=== PATIENT | male | born 1970 | race African-American/Black ===

== ENCOUNTER 2018-06-14 16:25 | Observation (INO) | payer OTHER ==
--- NOTE | 2018-06-14 16:30 | PDOC ---
Rapid Medical Evaluation Medical Evaluation: Allergies Allergy/AdvReac Type Severity Reaction Status Date / Time No Known Allergies Allergy Verified 09/22/12 03:48 06/14/18 16:29 I have performed a brief in-person evaluation of this patient. The patient presents with a chief complaint of:CP x 6 days. ?sob. H/o CAD w/ 1 stent placed last yr, s/p "open heart surgery" for "hole in my heart" per pt Pertinent physical exam findings:well shaun and stable w/ clear chest/lungs I have ordered the following:ekg/cxr/labs The patient will proceed to the ED for further evaluation. Discharge Disposition - Referrals Referrals: Xavi Kumar MD [Primary Care Provider] - - Patient Instructions - Post Discharge Activity
[2018-06-14 16:54] LABS: BASO % 1.1 % (0-2.0); EOS % 6.8 % (0-4.5); HEMATOCRIT 43.7 % (35.4-49); HEMOGLOBIN 15.1 GM/dL (11.7-16.9); LYMPH % 36.2 % (8-40); MCH 29.9 pg (25.7-33.7); MCHC 34.6 g/dl (32.0-35.9); MEAN CELL VOLUME 86.6 fl (80-96); MEAN PLT VOLUME 9.9 fl (7.5-11.1); MONO % 9.5 % (3.8-10.2); NEUT % 46.4 % (42.8-82.8); PLATELET COUNT 209 K/MM3 (134-434); RBC 5.05 M/mm3 (4.00-5.60); RDW 13.7 % (11.9-15.9); WHITE BLOOD COUNT 6.5 K/mm3 (4.0-10.0)
[2018-06-14 17:24] LABS: ALBUMIN 3.8 g/dl (3.4-5.0); ANION GAP 8 MMOL/L (8-16); BILIRUBIN,TOTAL 0.4 mg/dL (0.2-1); BLOOD UREA NITROGEN 17 mg/dL (7-18); CALCIUM 9.3 mg/dL (8.5-10.1); CHLORIDE 109 mmol/L (98-107); CO2 25 mmol/L (21-32); CREATININE 1.2 mg/dL (0.55-1.3); GLUCOSE,RANDOM 118 mg/dL (74-106); POTASSIUM 4.2 mmol/L (3.5-5.1); SGOT/AST 26 U/L (15-37); SGPT/ALT 46 U/L (13-61); SODIUM 142 mmol/L (136-145); TOT PROT 7.1 g/dl (6.4-8.2)
[2018-06-14 17:26] LABS: ALK PHOS 121 U/L (45-117)
--- NOTE | 2018-06-14 17:52 | PDOC ---
History of Present Illness - General History Source: Patient Exam Limitations: No Limitations <Ashwin Pinzon - Last Filed: 06/14/18 18:33> <Lang Gibbs - Last Filed: 06/14/18 21:06> - General Chief Complaint: Chest Pain Stated Complaint: CHEST PAIN Time Seen by Provider: 06/14/18 16:31 - History of Present Illness Initial Comments: 06/14/18 18:33 The patient is a 48 year old male, with a significant past medical history of cardiac stent placement and open heart surgery (as a child), who presents to the ED complaining of chest pain and shortness of breath for the past week. He describes his chest pain as ranging from mild to moderate, sharp and tight in nature. He denies any radiation or modifying factors. He notes that the pain is intermittent and has remained consistent over the past week. He notes that he took Plavix for a year and is currently off Plavix and taking a daily aspirin. He denies exacerbation of his pain or shortness of breath when he exerts himself. The patient denies headache and dizziness. Denies fever, chills, nausea, vomiting, diarrhea or constipation. Allergies: None Past surgical history: Cardiac stent placement, open heart surgery Social History: Cigar (1/2 a day). Alcohol use on the weekends Cardio: Dr. Cole (Ashwin Pinzon) Past History <Ashwin Pinzon - Last Filed: 06/14/18 18:33> - Past Medical History Cardiac Disorders: Yes (STENT, OPEN HEART) COPD: No - Surgical History Cardiac Surgery: Yes (Cardiac Surgery) - Immunization History Immunization Up to Date: No - Suicide/Smoking/Psychosocial Hx Smoking Status: No Smoking History: Never smoked Number of Cigarettes Smoked Daily: 0 <Lang Gibbs - Last Filed: 06/14/18 21:06> - Past Medical History Allergies/Adverse Reactions: Allergies Allergy/AdvReac Type Severity Reaction Status Date / Time No Known Allergies Allergy Verified 06/14/18 16:30 Home Medications: Ambulatory Orders Unobtainable 06/14/18 Review of Systems - Review of Systems Able to Perform ROS?: Yes <Ashwin Pinzon - Last Filed: 06/14/18 18:33> <Lang Gibbs - Last Filed: 06/14/18 21:06> - Review of Systems Comments:: 06/14/18 18:36 CONSTITUTIONAL: No fever, no chills, no fatigue EYES: No visual changes ENT: No ear pain, no sore throat CARDIOVASCULAR: (+) chest pain, no palpitations RESPIRATORY: (+) SOB. No cough. GI: No abdominal pain, no nausea, no vomiting, no constipation, no diarrhea GENITOURINARY: No dysuria, no frequency, no hematuria MUSKULOSKELETAL: No backpain, no joint pain, no myalgias SKIN: No rash NEURO: No headache (Ashwin Pinzon) *Physical Exam <Ashwin Pinzon - Last Filed: 06/14/18 18:33> <Lang Gibbs - Last Filed: 06/14/18 21:06> - Vital Signs Last Vital Signs Temp Pulse Resp BP Pulse Ox 99.2 F 82 18 143/82 97 06/14/18 16:27 06/14/18 16:27 06/14/18 16:27 06/14/18 16:27 06/14/18 16:27 - Physical Exam Comments: 06/14/18 18:37 CONSTITUTIONAL: Well-appearing; well-nourished; in no apparent distress HEAD: Normocephalic; atraumatic EYES: PERRL; EOM intact ENMT: External appears normal; normal oropharynx NECK: Supple; non-tender; no cervical lymphadenopathy CARD: Normal S1, S2; no murmurs, rubs, or gallops RESP: Normal chest excursion with respiration; breath sounds clear and equal bilaterally; no wheezes, rhonchi, or rales ABD: Soft, non-distended; non-tender; no palpable organomegaly, no palpable hernias EXT: Normal ROM in all four extremities; non-tender to palpation; distal pulses intact SKIN: Warm, dry, no rash NEURO: No focal neurological deficiencies. (Ashwin Pinzon) Heart Score/ECG Review - History History: Moderately suspicious - Electrocardiogram EKG: Non specific repolarization disturbance - Age Age: 45-65 - Risk Factors Risk Factors Heart Score: Yes Hx Hypertension, Yes Smoking History Based on the list above the patient has:: 1-2 risk factors - Troponin Troponin: </= normal limit - Score Heart Score - Total: 4 <Lang Gibbs - Last Filed: 06/14/18 21:06> ED Treatment Course - LABORATORY CBC & Chemistry Diagram: 06/14/18 16:42 06/14/18 16:42 <Ashwin Pinzon - Last Filed: 06/14/18 18:33> - LABORATORY CBC & Chemistry Diagram: 06/14/18 16:42 06/14/18 16:42 <Lang Gibbs - Last Filed: 06/14/18 21:06> - ADDITIONAL ORDERS Additional order review: Laboratory Results 06/14/18 16:42 Sodium 142 Potassium 4.2 Chloride 109 H Carbon Dioxide 25 Anion Gap 8 BUN 17 Creatinine 1.2 Creat Clearance w eGFR > 60 Random Glucose 118 H Calcium 9.3 Total Bilirubin 0.4 AST 26 ALT 46 Alkaline Phosphatase 121 H Creatine Kinase 267 Creatine Kinase Index 0.6 CK-MB (CK-2) 1.81 Troponin I < 0.02 Total Protein 7.1 Albumin 3.8 06/14/18 16:42 RBC 5.05 MCV 86.6 MCHC 34.6 RDW 13.7 MPV 9.9 Neutrophils % 46.4 Lymphocytes % 36.2 Monocytes % 9.5 Eosinophils % 6.8 H Basophils % 1.1 - Medications Given in the ED: ED Medications Discontinued Medications Generic Name Dose Route Start Last Admin Trade Name Freq PRN Reason Stop Dose Admin Aspirin 162 mg 06/14/18 18:23 06/14/18 18:48 Asa - PO 06/14/18 18:24 162 mg ONCE ONE Administration Medical Decision Making <Ashwin Pinzon - Last Filed: 06/14/18 18:33> <Lang Gibbs - Last Filed: 06/14/18 21:06> - Medical Decision Making 06/14/18 21:04 Patient is a 48-year-old male with history of CAD on aspirin who presents with intermittent substernal left-sided chest discomfort for the past week. I suspect ACS. EKG reveals nonspecific T-wave abnormalities without a previous EKG available for comparison. Chest x-ray reveals no evidence of cardiomegaly/ infiltrate or effusion. Patient's heart score is noted to be 4. First set of cardiac enzymes within normal limit. We'll administer aspirin. We'll consult cardiology. Will place on telemetry of's for further evaluation and treatment. ( Lang Gibbs) *DC/Admit/Observation/Transfer <Ashwin Pinzon - Last Filed: 06/14/18 18:33> - Discharge Dispostion Decision to Admit order: Yes <Lang Gibbs - Last Filed: 06/14/18 21:06> Diagnosis at time of Disposition: Acute coronary syndrome - Discharge Dispostion Condition at time of disposition: Fair - Referrals Referrals: Xavi Kumar MD [Primary Care Provider] - - Patient Instructions - Post Discharge Activity - Attestations Scribe Attestion: 06/14/18 18:37 Documentation prepared by Ashwin Pinzon, acting as medical billing supervisor for Lang Gibbs MD (Ashwin Pinzon)
[2018-06-14] MEDS ORDERED: ASPIRIN 81 MG CHEWABLE TABLETS PO ONE (18:23)
[2018-06-14] MEDS ORDERED: ASPIRIN 81 MG CHEWABLE TABLETS ONE (18:44)
--- NOTE | 2018-06-15 01:11 | HP ---
CHIEF COMPLAINT: Chest pain PCP: HISTORY OF PRESENT ILLNESS: The patient is a 48 yo m w/ PMH CAD and [place] s/p stenting 1 year ago who comes into the ED c/o a 1 week history of Chest pain. The pain is sharp, located on the left side of his chest just below the pectoral muscle, does not radiate and has no modidifying factors. The patient states that the pain waxes and wanes, but has not completely gone away singe he first noticed it. Patient denies trauma to the area, heavy lifting or exertional nature of the pain. 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 Patient has not seen his rolling mill plugger in approx. 4 months as he missed his most recent appointment. Patient denies SOB, fever, chills, dyspnea on exertion, abdominal pain. ER course was notable for: (1) ASA 162, EKG showing nonspecific changes (2) trop negative x1 (3) Recent Travel: none PAST MEDICAL HISTORY: see hPI PAST SURGICAL HISTORY: Open heart sugery to repair "a hole in his heart" 20 years ago stenting 1 year ago Social History: Smoking: smokes 1/2 cigar per day Alcohol: social drinker Drugs: denies Family History: sister and grandmother with DM No history cardiac disease, cardiac , sudden . Allergies No Known Allergies Allergy (Verified 06/14/18 16:30) HOME MEDICATIONS: Home Medications Medication Instructions Recorded Unobtainable 06/14/18 REVIEW OF SYSTEMS CONSTITUTIONAL: Absent: fever, chills, diaphoresis, generalized weakness, malaise, loss of appetite, weight change HEENT: Absent: rhinorrhea, nasal congestion, throat pain, throat swelling, difficulty swallowing, mouth swelling, ear pain, eye pain, visual changes CARDIOVASCULAR: Absent: syncope, palpitations, irregular heart rate, lightheadedness, peripheral edema RESPIRATORY: Absent: cough, shortness of breath, dyspnea with exertion, orthopnea, wheezing, stridor, hemoptysis GASTROINTESTINAL: Absent: abdominal pain, abdominal distension, nausea, vomiting, diarrhea, constipation, melena, hematochezia GENITOURINARY: Absent: dysuria, frequency, urgency, hesitancy, hematuria, flank pain, genital pain MUSCULOSKELETAL: Absent: myalgia, arthralgia, joint swelling, back pain, neck pain SKIN: Absent: rash, itching, pallor HEMATOLOGIC/IMMUNOLOGIC: Absent: easy bleeding, easy bruising, lymphadenopathy, frequent infections ENDOCRINE: Absent: unexplained weight gain, unexplained weight loss, heat intolerance, cold intolerance NEUROLOGIC: Absent: headache, focal weakness or paresthesias, dizziness, unsteady gait, seizure, mental status changes, bladder or bowel incontinence PSYCHIATRIC: Absent: anxiety, depression, suicidal or homicidal ideation, hallucinations. PHYSICAL EXAMINATION Vital Signs - 24 hr 06/14/18 06/15/18 16:27 00:19 Temperature 99.2 F Pulse Rate 82 Pulse Rate [ 63 Left Radial] Respiratory 18 18 Rate Blood Pressure 143/82 Blood Pressure 119/74 [Right Arm] O2 Sat by Pulse 97 97 Oximetry (%) GENERAL: Awake, alert, and fully oriented, in no acute distress. HEAD: Normal with no signs of trauma. EYES: Pupils equal, round and reactive to light, extraocular movements intact, sclera anicteric, conjunctiva clear. No lid lag. EARS, NOSE, THROAT: oropharynx clear without exudates. Moist mucous membranes. NECK: Normal range of motion, supple without lymphadenopathy, JVD, or masses. LUNGS: Breath sounds equal, clear to auscultation bilaterally. No wheezes, and no crackles. No accessory muscle use. HEART: Regular rate and rhythm, normal S1 and S2 without murmur, rub or gallop. Cheat pain reproducible on palpation. ABDOMEN: Soft, mild tenderness to palpation along the left side of the abdomen with radiation to the region of the patient's chest pain not distended, normoactive bowel sounds, no guarding, no rebound, no masses. No hepatomegaly or splenomegaly. LOWER EXTREMITIES: 2+ pulses, warm, well-perfused. No calf tenderness. No peripheral edema. NEUROLOGICAL: Cranial nerves II-X intact. Normal speech. PSYCHIATRIC: Cooperative. Good eye contact. Appropriate mood and affect. SKIN: Warm, dry, normal turgor, no rashes or lesions noted, normal capillary refill. Laboratory Results - last 24 hr 06/14/18 06/14/18 16:42 16:42 WBC 6.5 RBC 5.05 Hgb 15.1 Hct 43.7 MCV 86.6 MCH 29.9 MCHC 34.6 RDW 13.7 Plt Count 209 MPV 9.9 Absolute Neuts (auto) 3.0 Neutrophils % 46.4 Lymphocytes % 36.2 Monocytes % 9.5 Eosinophils % 6.8 H Basophils % 1.1 Nucleated RBC % 0 Sodium 142 Potassium 4.2 Chloride 109 H Carbon Dioxide 25 Anion Gap 8 BUN 17 Creatinine 1.2 Creat Clearance w eGFR > 60 Random Glucose 118 H Calcium 9.3 Total Bilirubin 0.4 AST 26 ALT 46 Alkaline Phosphatase 121 H Creatine Kinase 267 Creatine Kinase Index 0.6 CK-MB (CK-2) 1.81 Troponin I < 0.02 Total Protein 7.1 Albumin 3.8 ASSESSMENT/PLAN: The patient is a 48 yo m w/ PMH CAD w/ [place] s/p stenting who comes into the ED c/ o chest pain. #Reproducible, sharp chest pain -likely pleuritic/ musculoskeletal, though ACS must be ruled out given history -troponins negative x2, will trend a third time -initial EKG nonspecific, though there are no other EKGs available for comparison -patient able to recall home med names, but not dosing. Will restart common dosing of patient's home meds pending verification in the AM -Consider cardio consult #FEN -no fluids indicated -lytes WNL -sodium controlled diet #Prophy -lovenox 40mg SQ daily #Dispo -admit tele obs r/o ACS Visit type - Emergency Visit Emergency Visit: Yes ED Registration Date: 06/14/18 Care time: The patient presented to the Emergency Department on the above date and was hospitalized for further evaluation of their emergent condition. - New Patient This patient is new to me today: Yes Date on this admission: 06/15/18 - Critical Care Critical Care patient: No Hospitalist Screening - Colonoscopy Questionnaire Colonoscopy Questionnaire: Colonoscopy Questionnaire - Patient: 50 - 75 years old and never had a screening colonoscopy: Unknown History of colon or rectal polyps, or CA: Unknown History of IBD, Crohn's disease or UC: Unknown History of abdominal radiation therapy as a child: Unknown - Relative: 1 with colon or rectal CA, or polyps at age 60 or younger: Unknown Colon or rectal CA diagnosed at age 45 or younger: Unknown Multiple relatives with colon or rectal CA: Unknown - Outcome: Screening Result: Negative Screen
--- NOTE | 2018-06-15 01:44 | PN ---
Teaching Attending Note Name of Resident: Saud Odell ATTENDING PHYSICIAN STATEMENT I saw and evaluated the patient. Chart, data, imaging reviewed. I reviewed the resident's note and discussed the case with the resident. I agree with the resident's findings and plan as documented. SUBJECTIVE: 48 year old man, with a significant past medical history of cardiac stent placement about one 1 yr ago and open heart surgery (as a child) c/o several days of left sided chest pain unrelated to exertion. Left chest pain is nonradiating and reproducible with palpation of chest. No recent cardiac stress test reported. OBJECTIVE: Last Vital Signs Temp Pulse Resp BP Pulse Ox 99.2 F 63 18 119/74 97 06/14/18 16:27 06/15/18 00:19 06/15/18 00:19 06/15/18 00:19 06/15/18 00:19 General- nad, aaox3, well built heent - atraumatic, normocephalic neck -supple cv -s1+S2+ rrr chest- cta b/l, left chest tender on palpation abdomen -soft, nt, bs+ ext- no pedal edema Abnormal Lab Results 06/14/18 06/14/18 16:42 16:42 Eosinophils % 6.8 H Chloride 109 H Random Glucose 118 H Alkaline Phosphatase 121 H ekg- sinus rhythm, poor R wave progression cxr - reviewed ASSESSMENT AND PLAN: #48yo man with underlying CAD w/ atypical chest pain. Unlikely ACS in origin. Possible costochondritis. Troponin neg x1. -tele/observation -trend troponins -trial of Nitroglycerin SC -ASA -statin -cristiana -ACEi -consider cardiac eval -likely will need cardiac stress test -heparin sc for dvt ppx
[2018-06-15 03:57] VITALS: BMI 30.2
[2018-06-15 07:22] LABS: HEMATOCRIT 43.4 % (35.4-49); HEMOGLOBIN 14.7 GM/dL (11.7-16.9); MCH 29.6 pg (25.7-33.7); MEAN CELL VOLUME 87.1 fl (80-96); MEAN PLT VOLUME 9.9 fl (7.5-11.1); PLATELET COUNT 167 K/MM3 (134-434); RBC 4.98 M/mm3 (4.00-5.60); WHITE BLOOD COUNT 4.9 K/mm3 (4.0-10.0)
[2018-06-15 07:37] LABS: INR 1.09 (0.83-1.09); PROTHROMBIN TIME (PATIENT) 12.3 SEC (9.7-13.0)
[2018-06-15 07:41] LABS: CHLORIDE 106 mmol/L (98-107); POTASSIUM 4.2 mmol/L (3.5-5.1); SODIUM 139 mmol/L (136-145)
[2018-06-15 07:50] LABS: ANION GAP 6 MMOL/L (8-16); BLOOD UREA NITROGEN 12 mg/dL (7-18); CALCIUM 8.3 mg/dL (8.5-10.1); CO2 27 mmol/L (21-32); GLUCOSE,RANDOM 96 mg/dL (74-106); MAGNESIUM 2.1 mg/dL (1.8-2.4); PHOSPHOROUS 4.2 mg/dL (2.5-4.9)
--- NOTE | 2018-06-15 09:56 | EKG ---
Test Reason : Blood Pressure : / mmHG Vent. Rate : 062 BPM Atrial Rate : 062 BPM P-R Int : 164 ms QRS Dur : 094 ms QT Int : 450 ms P-R-T Axes : 076 -58 114 degrees QTc Int : 456 ms NORMAL SINUS RHYTHM POSSIBLE LEFT ATRIAL ENLARGEMENT LEFT AXIS DEVIATION INCOMPLETE RIGHT BUNDLE BRANCH BLOCK INFERIOR INFARCT (CITED ON OR BEFORE 14-JUN-2018) POSSIBLE ANTERIOR INFARCT (CITED ON OR BEFORE 14-JUN-2018) ABNORMAL ECG WHEN COMPARED WITH ECG OF 14-JUN-2018 16:38, NO SIGNIFICANT CHANGE WAS FOUND Confirmed by GABY MONIQUE MD ([id number]) on 06/15/2018 9:56:34 AM Referred By: Confirmed By:GABY MONIQUE MD
--- NOTE | 2018-06-15 09:59 | EKG ---
Test Reason : Blood Pressure : / mmHG Vent. Rate : 073 BPM Atrial Rate : 073 BPM P-R Int : 156 ms QRS Dur : 086 ms QT Int : 412 ms P-R-T Axes : 070 -59 085 degrees QTc Int : 453 ms NORMAL SINUS RHYTHM BIATRIAL ENLARGEMENT LEFT AXIS DEVIATION POSSIBLE INFERIOR INFARCT , AGE UNDETERMINED POSSIBLE ANTERIOR INFARCT , AGE UNDETERMINED ABNORMAL ECG NO PREVIOUS ECGS AVAILABLE Confirmed by ENEIDA DONALD, GABY ([id number]) on 06/15/2018 9:58:26 AM Referred By: Confirmed By:GABY MONIQUE MD
[2018-06-15] MEDS ORDERED: metoPROLOL SUCCINATE 25 MG TAB.SR.24H (FP) PO SCH (10:00)
[2018-06-15] MEDS ORDERED: ASPIRIN COATED 81 MG TABLET.EC PO SCH (10:00)
[2018-06-15] MEDS ORDERED: amLODIPine BESYLATE 5 MG TABLET (FP) PO SCH (10:00)
[2018-06-15] MEDS ORDERED: ENOXAPARIN NA (PORCINE) 40 MG/0.4 ML DISP.SYRIN SQ SCH (10:00)
[2018-06-15 15:19] VITALS: BP 130/60; PULSE 63; TEMP 97.7
--- NOTE | 2018-06-15 17:16 | PN ---
Teaching Attending Note Name of Resident: Kailash Srivastava ATTENDING PHYSICIAN STATEMENT I saw and evaluated the patient. I reviewed the resident's note and discussed the case with the resident. I agree with the resident's findings and plan as documented. SUBJECTIVE:asymptomatic. no recent CP or SOB OBJECTIVE: Last Vital Signs Temp Pulse Resp BP Pulse Ox 97.7 F 63 18 130/60 100 06/15/18 14:00 06/15/18 14:00 06/15/18 14:00 06/15/18 14:00 06/15/18 10:05 ASSESSMENT AND PLAN: 48yo M with PMH CAD s/p stent last year and open heart surgery for likely PFO presented to the ER with CP 1. CP- r/o acs. CP is reported as reproducible on exam CE neg x3. no events on bus monitor. pt wants to f/u with private elevator repair mechanic for testing. multiple attempts to reach out to elevator repair mechanic with no call back. pt states will f/u with elevator repair mechanic on Tuesday for follow up and will return to the ER if CP returns
--- NOTE | 2018-06-15 18:35 | DS ---
Physical Exam: SUBJECTIVE: Patient seen and examined this AM. He has no complaints at this time. Says his chest pain is currently resolved. Discussed with pt the likelihood of pain being musculoskeletal in nature. OBJECTIVE: Vital Signs Period Temp Pulse Resp BP Sys/Brooks Pulse Ox Last 24 Hr 97.7 F-98.2 F 56-82 18-18 119-136/60-79 97-100 PHYSICAL EXAM GENERAL: A&O, no acute distress HEAD: Normocephalic, atraumatic. EYES: PERRL, no scleral icterus EARS, NOSE, THROAT: oropharynx clear without exudates. Moist mucous membranes. NECK: supple without lymphadenopathy LUNGS: CTA b/l, no crackles or wheezes HEART: Regular rate and rhythm, normal S1 and S2 without murmur ABDOMEN: Soft, nontender to palpation, normoactive bowel sounds MUSCULOSKELETAL: No bony deformities or tenderness. nontender to palpation on chest and abdomen presently EXTREMITIES: 2+ pulses, warm, well-perfused. No peripheral edema. NEUROLOGICAL: Cranial nerves II-XII grossly intact. Normal speech. PSYCHIATRIC: Cooperative. Good eye contact. Appropriate mood and affect. SKIN: Warm, dry, no rashes or lesions noted LABS Laboratory Results - last 24 hr 06/15/18 06/15/18 06/15/18 00:19 05:30 05:30 WBC 4.9 RBC 4.98 Hgb 14.7 Hct 43.4 MCV 87.1 MCH 29.6 MCHC 34.0 RDW 14.0 Plt Count 167 D MPV 9.9 PT with INR 12.30 INR 1.09 Sodium Potassium Chloride Carbon Dioxide Anion Gap BUN Creatinine Creat Clearance w eGFR Random Glucose Calcium Phosphorus Magnesium Troponin I < 0.02 06/15/18 06/15/18 05:30 05:30 WBC RBC Hgb Hct MCV MCH MCHC RDW Plt Count MPV PT with INR INR Sodium 139 Potassium 4.2 Chloride 106 Carbon Dioxide 27 Anion Gap 6 L BUN 12 Creatinine 1.0 Creat Clearance w eGFR > 60 Random Glucose 96 Calcium 8.3 L Phosphorus 4.2 Magnesium 2.1 Troponin I < 0.02 Cancelled IMAGING: CXR: No acute chest pathology HOSPITAL COURSE: Date of Admission:06/14/18 Date of Discharge: 06/15/18 48 yo m w/ PMH CAD and [place] s/p stenting 1 year ago who was admitted with a c/o a 1 week history of Chest pain. With history of stent in the last year, pt was observed overnight, EKGs were done which showed prior ischemic changes and were unchanged on repeat. Troponins were ordered and negative times 3. The pain was reproducible on exam as per ED and admitting team. Pain resolved overnight and was no longer reproducible. Pt expressed desire to go home and was deemed medically safe for discharge with close follow up by Cardiology. 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 Pt stated he would make the earliest available appointment on discharge and be seen in the next few days. Minutes to complete discharge: 40 Discharge Summary Reason For Visit: ACUTE CORONARY SYNDROME Condition: Good - Instructions Diet, Activity, Other Instructions: You were admitted to the hospital with a complaint of chest pain. With your heart history and the placement of a stent, it was important to rule out a heart attack so you were observed overnight. While you were here you had two EKGs which did not show any concerning changes. You also had blood work tested for elevated heart enzymes which were normal. Your pain is likely musculoskeletal in nature and can be improved with NSAIDs (Ibuprofen) and rest. You should follow up with your silica filter operator Dr. Cole within one week for further follow up and any outpatient tests that they may want to do such as a stress test which you have asked about while you were here. We attempted to reach him but were unable. You should call him today and make the soonest available appointment. You should also follow up with your primary care doctor within 1 week of discharge from the hospital. You should resume taking all of your home medications as they are prescribed prior to your admission to the hospital. If your chest pain worsens, you have shortness of breath, chest pressure, or any other severe symptoms, it is important that you call 911 or return to the emergency department immediately. Disposition: HOME - Home Medications Comprehensive Discharge Medication List: Ambulatory Orders Amlodipine Besylate [Norvasc -] 5 mg PO DAILY 06/15/18 Aspirin 81 mg PO DAILY 06/15/18 Atorvastatin Ca [Lipitor] 40 mg PO DAILY 06/15/18 Metoprolol Succinate [Toprol Xl] 25 mg PO DAILY 06/15/18 This patient is new to me today: Yes Date on this admission: 06/15/18 Emergency Visit: Yes ED Registration Date: 06/14/18 Care time: The patient presented to the Emergency Department on the above date and was hospitalized for further evaluation of their emergent condition. Critical Care patient: No - Discharge Referral Referred to [facility] Med P.C.: No
== END 2018-06-15 16:17 | disposition home or self-care (01) ==
LOC: JER 16:25 → JERBED 21:06 → J4W 06-15 03:21
PROVIDERS: ADMIT Internal Medicine; ATTEND Internal Medicine
PROC: 3E013GC Introduction of Other Therapeutic Substance into Subcutaneous Tissue, Percutaneous Approach (ICD-10-PCS; principal; 2018-06-14)
DX: I24.9 Acute ischemic heart disease, unspecified (principal); I25.10 Atherosclerotic heart disease of native coronary artery without angina pectoris; Z95.5 Presence of coronary angioplasty implant and graft; I25.2 Old myocardial infarction; F17.299 Nicotine dependence, other tobacco product, with unspecified nicotine-induced disorders; Z79.82 Long term (current) use of aspirin
CPT/HCPCS: 36415; 71046-TC-FY; 80048; 80053; 82550; 82553; 83735; 84100; 84484; 85025; 85027; 85610; 93005; 93010; 99285-25; G0378

== ENCOUNTER 2018-09-27 14:40 | Inpatient (IN) | payer OTHER ==
[2018-09-27] MEDS ORDERED: ASPIRIN 81 MG CHEWABLE TABLETS PO ONE ×2 (14:45→15:16)
--- NOTE | 2018-09-27 14:47 | PDOC ---
Rapid Medical Evaluation Time Seen by Provider: 09/27/18 14:42 Medical Evaluation: Allergies Allergy/AdvReac Type Severity Reaction Status Date / Time No Known Allergies Allergy Verified 06/14/18 16:30 09/27/18 14:43 I have performed a brief in-person evaluation of this patient. The patient presents with a chief complaint of: SOB, midsternal chest pain and dizziness while walking today; h/o stent Pertinent physical exam findings: HR-134. Skin moist. Lungs CTAB. I have ordered the following: cardiac workup The patient will proceed to the ED for further evaluation. Discharge Disposition - Diagnosis SOB (shortness of breath) - Referrals - Patient Instructions - Post Discharge Activity
[2018-09-27 14:48] VITALS: BMI 28.0
[2018-09-27] MEDS ORDERED: ASPIRIN 81 MG CHEWABLE TABLETS ONE ×2 (15:01→15:17)
[2018-09-27] MEDS ORDERED: METOPROLOL TARTRATE 5 MG/5 ML VIAL IVPUSH ONE ×2 (15:02→16:41)
--- NOTE | 2018-09-27 15:02 | PDOC ---
Attending Attestation - HPI HPI: 09/27/18 15:07 The patient is a 48 year old male, with a significant past medical history of hypertension, CAD and HI s/p stents (Aspirin daily), who presents to the emergency department with increased SOB, midsternal chest pain and dizziness while walking today. The patient denies headache. The patient denies fever, chills, nausea, vomit, diarrhea and constipation. The patient denies dysuria, frequency, urgency and hematuria. Allergies: NKDA Past surgical history: cardiac stents - Physicial Exam PE: 09/27/18 15:07 GENERAL: The patient is in no acute distress. HEAD: Normal with no signs of trauma. EYES: PERRLA, EOMI, sclera anicteric, conjunctiva clear. ENT: Ears normal, nares patent, oropharynx clear without exudates. Moist mucous membranes. NECK: Normal range of motion, supple without lymphadenopathy, JVD, or masses. LUNGS: Breath sounds equal, clear to auscultation bilaterally. No wheezes, and no crackles. HEART:(+) tachycardic rate, regular rhythm. normal S1 and S2 without murmur, rub or gallop. ABDOMEN: Soft, nontender, normoactive bowel sounds. No guarding, no rebound. No masses palpable. EXTREMITIES: Normal range of motion, no edema. No clubbing or cyanosis. No erythema, or tenderness. NEUROLOGICAL: Cranial nerves II through XII grossly intact. Normal speech. No focal neurological deficits. MUSCULOSKELETAL: Back non-tender to palpation, no CVA tenderness SKIN: Warm, Dry, normal turgor, no rashes or lesions noted. - Medical Decision Making 09/27/18 15:07 Documentation prepared by Carine Novoa, acting as certified medical aide for Zayra Rosenberg MD 09/27/18 15:49 [facility] was paged at the office requesting for a doctor to doctor. I was informed Dr. Thai Mcgill will return the call. 09/27/18 16:07 Dr. Mcgill was paged a second time. <Carine Novoa - Last Filed: 09/27/18 16:07> - Resident Resident Name: Lenny Muñoz - ED Attending Attestation I have performed the following: I have examined & evaluated the patient, The case was reviewed & discussed with the resident, I agree w/resident's findings & plan, Exceptions are as noted - HPI HPI: 09/27/18 15:04 48 yo M presenting with a complaint of shortness of breath and chest pain, dizziness when walking Pt reports a cough No fevers or chills Pt has a h/o VSD repair h/o CAD s/p HI and stent approximately 1 year ago (followed by casting plug assembler at [facility]) - Critical Care Time Total Critical Care Time: 60 Critical Care Statement: The care of this patient involved high complexity decision making to prevent further life threatening deterioration of the patient 's condition and/or to evaluate & treat vital organ system(s) failure or risk of failure. - Medical Decision Making 09/27/18 15:06 EKG - Aflutter rate of 118 bpm, Inferior st elevations, st elevation v1, t wave inversions II, III, aVF 09/27/18 15:13 09/27/18 15:20 Call placed to [facility] Pt accepted for transfer Heparin hung Asa ordered Metoprolol given Clinical Impression: STEMI, initial presentation Aflutter,, initial presentation 09/27/18 15:[address] Marte, [facility] Cath Attending Pt can stay here Pt should be rate controlled [facility] cardiology group called 09/27/18 16:08 Laboratory Tests 09/27/18 09/27/18 09/27/18 14:55 14:55 14:55 WBC 4.5 Hgb 15.9 Hct 48.0 Plt Count 176 INR 1.13 H Sodium 134 L Potassium 4.2 Chloride 102 Carbon Dioxide 24 BUN 25 H Creatinine 1.5 H Creatine Kinase 215 Troponin I < 0.02 B-Natriuretic Peptide 168.6 H 09/27/18 16:33 CXR - No effusion, No consolidation, no congestive changes Lopressor 5mg IV given x 2 + Lopressor 25mg po Pt HR minimally improved Admitted to tele <Zayra Rosenberg - Last Filed: 09/29/18 07:54> *DC/Admit/Observation/Transfer <Carine Novoa - Last Filed: 09/27/18 16:07> - Discharge Dispostion Decision to Admit order: No <Zayra Rosenberg - Last Filed: 09/29/18 07:54> Diagnosis at time of Disposition: SOB (shortness of breath) STEMI (ST elevation myocardial infarction) Qualifiers: Involved coronary artery: other coronary artery Qualified Code(s): I21.29 - ST elevation (STEMI) myocardial infarction involving other sites Atrial flutter Qualifiers: Atrial flutter type: unspecified Qualified Code(s): I48.92 - Unspecified atrial flutter - Discharge Dispostion Disposition: TRANSFER ACUTE CARE/OTHER HOSP Condition at time of disposition: Guarded
[2018-09-27] MEDS ORDERED: METOPROLOL TARTRATE 5 MG/5 ML VIAL ONE ×2 (15:08→16:51)
[2018-09-27] MEDS ORDERED: HEPARIN NA (PORCINE) 5,000 UNITS/ML 1ML VIAL IVPUSH PRN ×2 (15:16)
[2018-09-27] MEDS ORDERED: HEPARIN NA (PORCINE) 5,000 UNITS/ML 1ML VIAL ONE (15:18)
[2018-09-27] MEDS: HEPARIN INFUSION - 25,000 UNITS/500 ML INFUS.BAG IVPB SCH (15:18)
[2018-09-27] MEDS ORDERED: HEPARIN INFUSION - 25,000 UNITS/500 ML INFUS.BAG IVPB ONE (15:18)
--- NOTE | 2018-09-27 15:31 | PDOC ---
History of Present Illness - General Chief Complaint: Chest Pain Stated Complaint: SOB, CHEST PAIN Time Seen by Provider: 09/27/18 14:42 - History of Present Illness Initial Comments: 09/27/18 15:23 Mr. Jimenez is a 48 yo male w/ pmh of HTN, HLD, prior stent after [place] and distant open heart surgery for "hole in heart" who presents for evaluation of 5 day history of shortness of breath. Patient reports he has had associated dry cough for 4 days and intermittent fever as well. Now endorses dyspnea lying flat as well. Patient noted to have EKG reading STEMI upon arrival and brought back immediately for further evaluation. The patient denies chest pain, headache and dizziness. Denies diarrhea and constipation. Denies dysuria, frequency, urgency and hematuria. Past History - Past Medical History Allergies/Adverse Reactions: Allergies Allergy/AdvReac Type Severity Reaction Status Date / Time No Known Allergies Allergy Verified 06/14/18 16:30 Home Medications: Ambulatory Orders Amlodipine Besylate [Norvasc -] 5 mg PO DAILY 06/15/18 Aspirin 81 mg PO DAILY 06/15/18 Atorvastatin Ca [Lipitor] 40 mg PO HS 06/15/18 Metoprolol Succinate [Toprol Xl] 25 mg PO DAILY 06/15/18 Anemia: No Asthma: No Cancer: No Cardiac Disorders: Yes (OPEN HEART W/ STENT) CVA: No COPD: No CHF: No Dementia: No Diabetes: No GI Disorders: No Disorders: No HTN: Yes Hypercholesterolemia: Yes Liver Disease: No Seizures: No Thyroid Disease: No - Surgical History Abdominal Surgery: No Appendectomy: No Cardiac Surgery: Yes (Cardiac Surgery) Cholecystectomy: No Lung Surgery: No Neurologic Surgery: No Orthopedic Surgery: No - Immunization History Immunization Up to Date: No - Suicide/Smoking/Psychosocial Hx Smoking Status: No Smoking History: Current every day smoker Have you smoked in the past 12 months: No Number of Cigarettes Smoked Daily: 1 Cigars Per Day: 1 Information on smoking cessation initiated: No Hx Alcohol Use: No Drug/Substance Use Hx: No Substance Use Type: None Hx Substance Use Treatment: No Review of Systems - Review of Systems Comments:: 09/27/18 15:37 GENERAL/CONSTITUTIONAL: +Fever as described. No weakness. HEAD, EYES, EARS, NOSE AND THROAT: No change in vision. No ear pain or discharge. No sore throat. CARDIOVASCULAR: +Dyspnea on exertion and at rest. No chest pain RESPIRATORY: +Dry cough as described. No wheezing, or hemoptysis. GASTROINTESTINAL: +Intermitte diarrhea or constipation. GENITOURINARY: No dysuria, frequency, or change in urination. MUSCULOSKELETAL: No joint or muscle swelling or pain. No neck or back pain. SKIN: No rash NEUROLOGIC: No headache, vertigo, loss of consciousness, or change in strength/ sensation. ENDOCRINE: No increased thirst. No abnormal weight change HEMATOLOGIC/LYMPHATIC: No anemia, easy bleeding, or history of blood clots. ALLERGIC/IMMUNOLOGIC: No hives or skin allergy. *Physical Exam - Vital Signs Last Vital Signs Temp Pulse Resp BP Pulse Ox 98.2 F 134 H 16 123/83 96 09/27/18 14:43 09/27/18 14:43 09/27/18 14:43 09/27/18 15:10 09/27/18 14:43 - Physical Exam Comments: 09/27/18 15:59 GENERAL: Awake, alert, and fully oriented, in no acute distress HEAD: No signs of trauma, normocephalic, atraumatic EYES: PERRLA, EOMI, sclera anicteric, conjunctiva clear ENT: Auricles normal inspection, hearing grossly normal, nares patent, oropharynx clear without exudates. Moist mucosa NECK: Normal ROM, supple, no lymphadenopathy, JVD, or masses LUNGS: No distress, speaks full sentences, clear to auscultation bilaterally HEART: +Tachycardic rhythm, normal S1 and S2, no murmurs, rubs or gallops, peripheral pulses normal and equal bilaterally. ABDOMEN: Soft, nontender, normoactive bowel sounds. No guarding, no rebound. No masses EXTREMITIES: Normal inspection, Normal range of motion, no edema. No clubbing or cyanosis. NEUROLOGICAL: Cranial nerves II through XII grossly intact. Normal speech, normal gait, no focal sensorimotor deficits SKIN: Warm, Dry, normal turgor, no rashes or lesions noted. Moderate Sedation - Procedure Monitoring Vital Signs: Procedure Monitoring Vital Signs Temperature 98.2 F 09/27/18 14:43 Pulse Rate 134 H 09/27/18 14:43 Respiratory Rate 16 09/27/18 14:43 Blood Pressure 123/83 09/27/18 15:10 O2 Sat by Pulse Oximetry (%) 96 09/27/18 14:43 ED Treatment Course - LABORATORY CBC & Chemistry Diagram: 09/27/18 14:55 09/27/18 14:55 - RADIOLOGY Radiology Studies Ordered: Category Date Time Status CXRPORT [CHEST X-RAY PORTABLE*] [RAD] Stat Radiology 09/27/18 15:04 Ordered - Medications Given in the ED: ED Medications Discontinued Medications Generic Name Dose Route Start Last Admin Trade Name Neri PRN Reason Stop Dose Admin Aspirin 162 mg 09/27/18 14:45 09/27/18 15:02 Asa - PO 09/27/18 14:46 162 mg ONCE ONE Administration Metoprolol Tartrate 5 mg 09/27/18 15:02 09/27/18 15:10 Lopressor Injection - IVPUSH 09/27/18 15:03 5 mg ONCE ONE Administration Medical Decision Making - Medical Decision Making 09/27/18 15:59 Mr. Jimenez is a 48 yo male w/ pmh as described who presents for evaluation of dyspnea with increased HR. Patient noted to have STEMI on EKG at triage, sent through ER for further evaluation. Upon further interview patient reports he has not taken any of his medications for several days given his other symptoms. Patient given 5mg metoprolol IV. Heparin started. Repeat EKG no longer showing STEMI however diffuse ST elevation with aflutter. Discussed with laborer cement gun placing (Dr. Marte) at [facility] who believes EKG changes due to flutter and not IL. Patient will remain in-house; cardiology paged. 09/27/18 16:21 Discussed with cardiology who recommended continuing heparin and using oral toprol for HR control. Admitting for further evaluation. 09/27/18 19:31 Consulted cardiology for continued increased HR. Recommended 0.25 mg digoxin every 4-6 hours x4. Order placed. *DC/Admit/Observation/Transfer Diagnosis at time of Disposition: SOB (shortness of breath) STEMI (ST elevation myocardial infarction) Qualifiers: Involved coronary artery: other coronary artery Qualified Code(s): I21.29 - ST elevation (STEMI) myocardial infarction involving other sites Atrial flutter Qualifiers: Atrial flutter type: unspecified Qualified Code(s): I48.92 - Unspecified atrial flutter - Discharge Dispostion Condition at time of disposition: Guarded Decision to Admit order: Yes - Referrals - Patient Instructions - Post Discharge Activity
[2018-09-27 15:36] LABS: EOS % 0.6 % (0-4.5); HEMOGLOBIN 15.9 GM/dL (11.7-16.9); LYMPH % 54.8 % (8-40); MCH 28.5 pg (25.7-33.7); MCHC 33.2 g/dl (32.0-35.9); MEAN PLT VOLUME 9.6 fl (7.5-11.1); MONO % 15.8 % (3.8-10.2); NEUT % 27.8 % (42.8-82.8); PLATELET COUNT 176 K/MM3 (134-434); RBC 5.58 M/mm3 (4.00-5.60); RDW 13.9 % (11.9-15.9); WHITE BLOOD COUNT 4.5 K/mm3 (4.0-10.0)
[2018-09-27 15:40] LABS: INR 1.13 (0.83-1.09); PROTHROMBIN TIME (PATIENT) 13.4 SEC (9.7-13.0)
[2018-09-27 16:06] LABS: ALBUMIN 3.6 g/dl (3.4-5.0); ALK PHOS 105 U/L (45-117); ANION GAP 9 MMOL/L (8-16); BILIRUBIN,TOTAL 0.6 mg/dL (0.2-1); BLOOD UREA NITROGEN 25 mg/dL (7-18); CALCIUM 8.6 mg/dL (8.5-10.1); CHLORIDE 102 mmol/L (98-107); CO2 24 mmol/L (21-32); CREATININE 1.5 mg/dL (0.55-1.3); GLUCOSE,RANDOM 101 mg/dL (74-106); MAGNESIUM 1.9 mg/dL (1.8-2.4); N-TERMINAL BNP 168.6 pg/ml (5-125); POTASSIUM 4.2 mmol/L (3.5-5.1); SGOT/AST 43 U/L (15-37); SGPT/ALT 48 U/L (13-61); SODIUM 134 mmol/L (136-145); TOT PROT 7.2 g/dl (6.4-8.2)
[2018-09-27] MEDS ORDERED: metoPROLOL SUCCINATE 25 MG TAB.SR.24H (FP) PO ONE (16:08)
--- NOTE | 2018-09-27 16:36 | HP ---
CHIEF COMPLAINT: malaise, cough and worsening SOB x 5 days PCP: HISTORY OF PRESENT ILLNESS: Pt is a 48 yo M with pmh of HTN, HLD, CAD s/p stent following [place] (January 2018) and open heart surgery for "Likely PFO surgery" presenting with malaise, cough and worsening SOB. Pt noted non productive cough since Tuesday, with intermittent retrosternal chest pain 5/10, non radiating, worse with the cough. No diaphoresis. Pt did not take any medications, and missed his CAD medications including metoprolol (last dose Tuesday). He reports loose stools x4 yesterday of greenish, no bloody stool. Denies sorethroat/No nausea/no vomiting, but pt noted loss of appetite, reporting not eating the whole of Tuesday and tuesday. Pt came in today because of worsening dysnea on exertion and palpitations. Pt has been in contact with sick daughter with [facility] within the past week. Denies flu or pneumococcal vaccine. In the ED, he was noted to be in Aflutter. ED communicated with his cardiol who asked for him not to be transferred. Dr Mcgill was contacted and recommended heparin drip and metoprolol. Since being in the ED, the chest pain has since resolved ER course was notable for: (1) EKG- aflutter, 2:1 block- 118bpm, V1 KELLY, trop 0.02 x1 (2) Metoprolol PO 25 mg , lopressor 5mg x2 (3) Recent Travel: PAST MEDICAL HISTORY: HTN, HLD, CAD s/p stent following [place] (January 2018) and open heart surgery PAST SURGICAL HISTORY: Cardiac surgery with stent Social History: Smoking: Alcohol: Drugs: Family History: Allergies No Known Allergies Allergy (Verified 06/14/18 16:30) HOME MEDICATIONS: Home Medications Medication Instructions Recorded Amlodipine Besylate [Norvasc -] 5 mg PO DAILY 06/15/18 Aspirin 81 mg PO DAILY 06/15/18 Atorvastatin Ca [Lipitor] 40 mg PO HS 06/15/18 Metoprolol Succinate [Toprol Xl] 25 mg PO DAILY 06/15/18 REVIEW OF SYSTEMS CONSTITUTIONAL: Absent: fever+, chills, diaphoresis, generalized weakness+, malaise+, loss of appetite+, weight change HEENT: Absent: rhinorrhea, nasal congestion, throat pain, throat swelling, difficulty swallowing, mouth swelling, ear pain, eye pain, visual changes CARDIOVASCULAR: Absent: chest pain, syncope, palpitations, irregular heart rate, lightheadedness , peripheral edema RESPIRATORY: Absent: cough+, shortness of breath+, dyspnea with exertion+, orthopnea+, wheezing, stridor, hemoptysis GASTROINTESTINAL: Absent: abdominal pain, abdominal distension, nausea, vomiting, diarrhea+, constipation, melena, hematochezia GENITOURINARY: Absent: dysuria, frequency, urgency, hesitancy, hematuria, flank pain, genital pain MUSCULOSKELETAL: Absent: myalgia, arthralgia, joint swelling, back pain, neck pain SKIN: Absent: rash, itching, pallor HEMATOLOGIC/IMMUNOLOGIC: Absent: easy bleeding, easy bruising, lymphadenopathy, frequent infections ENDOCRINE: Absent: unexplained weight gain, unexplained weight loss, heat intolerance, cold intolerance NEUROLOGIC: Absent: headache, focal weakness or paresthesias, dizziness, unsteady gait, seizure, mental status changes, bladder or bowel incontinence PSYCHIATRIC: Absent: anxiety, depression, suicidal or homicidal ideation, hallucinations. PHYSICAL EXAMINATION Vital Signs - 24 hr 09/27/18 09/27/18 09/27/18 14:43 14:55 15:10 Temperature 98.2 F Pulse Rate 134 H Pulse Rate [ Apical] Respiratory 16 Rate Blood Pressure 105/72 123/83 Blood Pressure [Right Arm] O2 Sat by Pulse 96 99 Oximetry (%) 09/27/18 09/27/18 15:22 15:37 Temperature Pulse Rate Pulse Rate [ 116 H 112 H Apical] Respiratory 16 16 Rate Blood Pressure Blood Pressure 103/79 110/83 [Right Arm] O2 Sat by Pulse 99 99 Oximetry (%) GENERAL: Awake, alert, and fully oriented, in no acute distress. EYES: Pupils equal, round and reactive to light EARS, NOSE, THROAT: oropharynx clear without exudates. Dry mucous membranes, NC- 2L. NECK: Normal range of motion, supple , no JVD. LUNGS: Breath sounds equal, clear to auscultation bilaterally. No wheezes HEART: tachycardic, S1 and S2 ABDOMEN: Soft, nontender, not distended, normoactive bowel sounds, no guarding MUSCULOSKELETAL: Normal range of motion at all joints. No bony deformities or tenderness. No CVA tenderness. LOWER EXTREMITIES: 2+ pulses, warm, well-perfused. No calf tenderness. No peripheral edema. NEUROLOGICAL: Cranial nerves II-XII intact. Normal speech. gait not observed. Normal strength and tone globally, no facial/ tongue asymmetry PSYCHIATRIC: Cooperative. Good eye contact. Appropriate mood and affect. CBC, BMP 09/27/18 14:55 09/27/18 14:55 Laboratory Results - last 24 hr 09/27/18 09/27/18 09/27/18 14:55 14:55 14:55 WBC 4.5 RBC 5.58 Hgb 15.9 Hct 48.0 MCV 86.0 MCH 28.5 MCHC 33.2 RDW 13.9 Plt Count 176 MPV 9.6 Absolute Neuts (auto) 1.3 L Neutrophils % 27.8 L D Lymphocytes % 54.8 H D Monocytes % 15.8 H Eosinophils % 0.6 D Basophils % 1.0 Nucleated RBC % 0 PT with INR 13.40 H INR 1.13 H Sodium 134 L Potassium 4.2 Chloride 102 Carbon Dioxide 24 Anion Gap 9 BUN 25 H Creatinine 1.5 H Creat Clearance w eGFR 49.74 Random Glucose 101 Calcium 8.6 Magnesium 1.9 Total Bilirubin 0.6 AST 43 H ALT 48 Alkaline Phosphatase 105 Creatine Kinase 215 Creatine Kinase Index 1.1 CK-MB (CK-2) 2.5 Troponin I < 0.02 B-Natriuretic Peptide 168.6 H Total Protein 7.2 Albumin 3.6 ASSESSMENT/PLAN: Pt is a 48 yo M with pmh of HTN, HLD, CAD s/p stent following [place] (January 2018) and open heart surgery for "Likely PFO surgery" presenting with malaise, cough and worsening SOB found to be in Aflutter. #Aflutter No hx of arrythmias in past CAD s/p stent following [place] (January 2018) Likely precipitated in setting of dehydration from viral illness, and medication non compliance Received PO and iv lopressor Dr Mcgill on board For rate control- cont home toprol IV NS 1L bolus stat Initial trops <0.02, repeat trops Repeat BMP, EKG #R/O STEMI, possible UA V1 KELLY in setting of aflutter Heparin drip started, cont Cards on board Pt with elevated cr Trops negative, repeat Chest pain resolved ASA 81 daily HgbA1c- nl TSH-nl #CORDELIA Likely prerenal Iv NS 1L bolus stat Urine lytes UA #HTN BP trending down Hold amlodipine Cont toprol for rate control IV fluid bolus #HLD Lipitor 80mg HS #FEN NS Monitor lytes replete as needed Sodium controlled diet #DVT On heparin drip #Dispo In pt tele Visit type - Emergency Visit Emergency Visit: Yes ED Registration Date: 09/27/18 Care time: The patient presented to the Emergency Department on the above date and was hospitalized for further evaluation of their emergent condition. - New Patient This patient is new to me today: Yes Date on this admission: 09/27/18 - Critical Care Critical Care patient: No
--- NOTE | 2018-09-27 18:06 | EKG ---
Test Reason : Blood Pressure : / mmHG Vent. Rate : 118 BPM Atrial Rate : 267 BPM P-R Int : 000 ms QRS Dur : 084 ms QT Int : 372 ms P-R-T Axes : 094 258 083 degrees QTc Int : 521 ms SUSPECT ARM LEAD REVERSAL, INTERPRETATION ASSUMES NO REVERSAL ATRIAL FLUTTER WITH VARIABLE A-V BLOCK WITH PREMATURE VENTRICULAR OR ABERRANTLY CONDUCTED COMPLEXES RIGHT SUPERIOR AXIS DEVIATION INFERIOR INFARCT (CITED ON OR BEFORE 14-JUN-2018) ANTERIOR INFARCT (CITED ON OR BEFORE 14-JUN-2018) PROLONGED QT ST ELEVATION IN V1: R/O STEMI (discussed with ER MD; STEMI has been ruled out) Consider right ventricular involvement in acute inferior infarct ABNORMAL ECG WHEN COMPARED WITH ECG OF 15-JUN-2018 00:05, ATRIAL FLUTTER HAS REPLACED SINUS RHYTHM VENT. RATE HAS INCREASED BY 56 BPM INCOMPLETE RIGHT BUNDLE BRANCH BLOCK IS NO LONGER PRESENT Confirmed by HELENE DE LEON MD ([id number]) on 09/27/2018 6:05:32 PM Referred By: Confirmed By:HELENE DE LEON MD
[2018-09-27] MEDS ORDERED: DIGOXIN 0.5 MG/2 ML AMPUL IVPUSH ONE (19:28)
[2018-09-27] MEDS ORDERED: SODIUM CHLORIDE 1,000 ML IV STA (19:31)
--- NOTE | 2018-09-27 20:26 | PN ---
Teaching Attending Note Name of Resident: Loly Anderson ATTENDING PHYSICIAN STATEMENT I saw and evaluated the patient. I reviewed the resident's note and discussed the case with the resident. I agree with the resident's findings and plan as documented. SUBJECTIVE: Patient started that has been coughing and has cold x 3 days. no fever or chills , positive for mild dyspnea and cough. OBJECTIVE: Vital Signs Temperature 98.2 F 09/27/18 14:43 Pulse Rate 110 H 09/27/18 18:54 Respiratory Rate 20 09/27/18 18:54 Blood Pressure 98/64 09/27/18 18:54 O2 Sat by Pulse Oximetry (%) 97 09/27/18 18:54 GENERAL: Awake, alert, and fully oriented, in no acute distress. EYES: Pupils equal, round and reactive to light EARS, NOSE, THROAT: oropharynx clear without exudates. Dry mucous membranes, NC- 2L. NECK: Normal range of motion, supple , no JVD. LUNGS: Breath sounds equal, clear to auscultation bilaterally. No wheezes HEART: tachycardic, S1 and S2 ABDOMEN: Soft, nontender, not distended, normoactive bowel sounds, no guarding EXTREMITIES: 2+ pulses, warm, well-perfused. No calf tenderness. No peripheral edema. NEUROLOGICAL: Cranial nerves II-XII intact. Normal speech. PSYCHIATRIC: Cooperative. Good eye contact. Appropriate mood and affect. CBCD WBC 4.5 K/mm3 (4.0-10.0) 09/27/18 14:55 RBC 5.58 M/mm3 (4.00-5.60) 09/27/18 14:55 Hgb 15.9 GM/dL (11.7-16.9) 09/27/18 14:55 Hct 48.0 % (35.4-49) 09/27/18 14:55 MCV 86.0 fl (80-96) 09/27/18 14:55 MCHC 33.2 g/dl (32.0-35.9) 09/27/18 14:55 RDW 13.9 % (11.9-15.9) 09/27/18 14:55 Plt Count 176 K/MM3 (134-434) 09/27/18 14:55 MPV 9.6 fl (7.5-11.1) 09/27/18 14:55 CMP Sodium 134 mmol/L (136-145) L 09/27/18 14:55 Potassium 4.2 mmol/L (3.5-5.1) 09/27/18 14:55 Chloride 102 mmol/L (98-107) 09/27/18 14:55 Carbon Dioxide 24 mmol/L (21-32) 09/27/18 14:55 Anion Gap 9 MMOL/L (8-16) 09/27/18 14:55 BUN 25 mg/dL (7-18) H 09/27/18 14:55 Creatinine 1.5 mg/dL (0.55-1.3) H 09/27/18 14:55 Creat Clearance w eGFR 49.74 (>60) 09/27/18 14:55 Random Glucose 101 mg/dL (74-106) 09/27/18 14:55 Calcium 8.6 mg/dL (8.5-10.1) 09/27/18 14:55 Total Bilirubin 0.6 mg/dL (0.2-1) 09/27/18 14:55 AST 43 U/L (15-37) H 09/27/18 14:55 ALT 48 U/L (13-61) 09/27/18 14:55 Alkaline Phosphatase 105 U/L (45-117) 09/27/18 14:55 Total Protein 7.2 g/dl (6.4-8.2) 09/27/18 14:55 Albumin 3.6 g/dl (3.4-5.0) 09/27/18 14:55 CARDIAC ENZYMES Creatine Kinase 215 IU/L (26-308) 09/27/18 14:55 Troponin I < 0.02 ng/ml (0.00-0.05) 09/27/18 14:55 Current Medications Generic Name Dose Route Start Last Admin Trade Name Freq PRN Reason Stop Dose Admin Atorvastatin Calcium 80 mg 09/27/18 22:00 Lipitor - PO HS COLE Heparin Sodium (Porcine) 1,000 unit 09/27/18 15:16 Heparin - IVPUSH PRN PRN Heparin Heparin Sodium (Porcine) 5,000 unit 09/27/18 15:16 09/27/18 15:18 Heparin - IVPUSH 5,000 unit PRN PRN Administration Heparin Heparin Sodium/Dextrose 25,000 units in 500 mls @ 20 mls/hr 09/27/18 15:30 15:18 Heparin Infusion - IVPB 1,000 units/hr TITR COLE 20 mls/hr Administration Protocol 1,000 UNITS/HR Sodium Chloride 1,000 mls @ 1,000 mls/hr 09/27/18 19:31 Normal Saline - IV 09/27/18 20:30 ASDIR STA Metoprolol Succinate 25 mg 09/27/18 19:30 Toprol Xl - PO DAILY [facility] Home Medications Medication Instructions Recorded Amlodipine Besylate [Norvasc -] 5 mg PO DAILY 06/15/18 Aspirin 81 mg PO DAILY 06/15/18 Atorvastatin Ca [Lipitor] 40 mg PO HS 06/15/18 Metoprolol Succinate [Toprol Xl] 25 mg PO DAILY 06/15/18 ASSESSMENT AND PLAN: Pt is a 48 yo M with PMHx of HTN, HLD, CAD s/p stent following [place] (January 2018) and open heart surgery for PFO surgery presented with malaise, cough and worsening SOB found to be in Aflutter. #Aflutter with a rate of 110 today started on Heparin drip, aspirin and toprol was added. Cardio consult appreciated. #STEMI, V1 KELLY in setting of aflutter; heparin drip started, continue aspirin #CORDELIA on Iv NS 1L bolus stat, Urine lytes, UA #HTN: continue with toprol XL #HLD: Lipitor 80mg HS DVT px: on heparin drip Dispo :In pt tele
[2018-09-27] MEDS ORDERED: PT OWN MED DRAWER 7, Y5N ONE (21:58)
[2018-09-27] MEDS: ATORVASTATIN CA 80 MG TABLET (FP) PO SCH (23:06)
[2018-09-27] MEDS: metoPROLOL SUCCINATE 25 MG TAB.SR.24H (FP) PO SCH (23:06)
[2018-09-28] MEDS: HEPARIN INFUSION - 25,000 UNITS/500 ML INFUS.BAG IVPB SCH ×2 (03:00→10:17)
[2018-09-28 03:47] LABS: ANION GAP 9 MMOL/L (8-16); BLOOD UREA NITROGEN 23 mg/dL (7-18); CALCIUM 8.1 mg/dL (8.5-10.1); CHLORIDE 105 mmol/L (98-107); CO2 23 mmol/L (21-32); CREATININE 1.4 mg/dL (0.55-1.3); GLUCOSE,RANDOM 144 mg/dL (74-106); POTASSIUM 3.8 mmol/L (3.5-5.1); SODIUM 137 mmol/L (136-145)
[2018-09-28 06:58] LABS: BASO % 0.6 % (0-2.0); EOS % 1.9 % (0-4.5); HEMATOCRIT 42.8 % (35.4-49); HEMOGLOBIN 14.1 GM/dL (11.7-16.9); LYMPH % 52.9 % (8-40); MCH 28.4 pg (25.7-33.7); MEAN CELL VOLUME 86.2 fl (80-96); MEAN PLT VOLUME 9.7 fl (7.5-11.1); MONO % 13.9 % (3.8-10.2); NEUT % 30.7 % (42.8-82.8); PLATELET COUNT 152 K/MM3 (134-434); RBC 4.97 M/mm3 (4.00-5.60); RDW 13.8 % (11.9-15.9); WHITE BLOOD COUNT 3.7 K/mm3 (4.0-10.0)
[2018-09-28 07:27] LABS: ALBUMIN 2.9 g/dl (3.4-5.0); ALK PHOS 89 U/L (45-117); ANION GAP 7 MMOL/L (8-16); BILIRUBIN,TOTAL 0.6 mg/dL (0.2-1); BLOOD UREA NITROGEN 17 mg/dL (7-18); CALCIUM 7.6 mg/dL (8.5-10.1); CHLORIDE 105 mmol/L (98-107); CHOLESTEROL 101 mg/dL (50-200); CO2 24 mmol/L (21-32); GLUCOSE,RANDOM 86 mg/dL (74-106); HDL CHOLESTEROL 23 mg/dL (40-60); PHOSPHOROUS 3.4 mg/dL (2.5-4.9); POTASSIUM 4.1 mmol/L (3.5-5.1); SGOT/AST 30 U/L (15-37); SGPT/ALT 38 U/L (13-61); SODIUM 137 mmol/L (136-145); TOT PROT 5.8 g/dl (6.4-8.2); TRIGLYCERIDES 97 mg/dL (0-150)
[2018-09-28 09:01] LABS: INR 1.08 (0.83-1.09); PROTHROMBIN TIME (PATIENT) 12.7 SEC (9.7-13.0)
[2018-09-28 09:04] LABS: ACTIVATED PTT 69.2 SECONDS (25.2-36.5)
--- NOTE | 2018-09-28 09:25 | PN ---
Teaching Attending Note Name of Resident: Cyndi Alex ATTENDING PHYSICIAN STATEMENT I saw and evaluated the patient. I reviewed the resident's note and discussed the case with the resident. I agree with the resident's findings and plan as documented. SUBJECTIVE: Patient is comfortable with no acute distress. no fever or chills, no shortness of breath. OBJECTIVE: Vital Signs Temperature 98 F 09/28/18 02:00 Pulse Rate 110 H 09/28/18 05:58 Respiratory Rate 20 09/28/18 05:58 Blood Pressure 140/67 09/28/18 05:58 O2 Sat by Pulse Oximetry (%) 97 09/27/18 19:30 GENERAL: Awake, alert, and fully oriented, in no acute distress. EYES: Pupils equal, round and reactive to light EARS, NOSE, THROAT: oropharynx clear without exudates. Dry mucous membranes. NECK: Normal range of motion, supple , no JVD. LUNGS: Breath sounds equal, clear to auscultation bilaterally. No wheezes HEART: tachycardic rate of 110, S1 and S2 ABDOMEN: Soft, nontender, not distended, normoactive bowel sounds, no guarding EXTREMITIES: 2+ pulses, warm, well-perfused. No calf tenderness. No peripheral edema. NEUROLOGICAL: Cranial nerves II-XII intact. Normal speech. gait is stable. PSYCHIATRIC: Cooperative. Good eye contact. Appropriate mood and affect. Skin: tattoos on the arm and chest. CBCD WBC 3.7 K/mm3 (4.0-10.0) L 09/28/18 05:30 RBC 4.97 M/mm3 (4.00-5.60) 09/28/18 05:30 Hgb 14.1 GM/dL (11.7-16.9) 09/28/18 05:30 Hct 42.8 % (35.4-49) 09/28/18 05:30 MCV 86.2 fl (80-96) 09/28/18 05:30 MCHC 33.0 g/dl (32.0-35.9) 09/28/18 05:30 RDW 13.8 % (11.9-15.9) 09/28/18 05:30 Plt Count 152 K/MM3 (134-434) 09/28/18 05:30 MPV 9.7 fl (7.5-11.1) 09/28/18 05:30 CMP Sodium 137 mmol/L (136-145) 09/28/18 06:00 Potassium 4.1 mmol/L (3.5-5.1) 09/28/18 06:00 Chloride 105 mmol/L (98-107) 09/28/18 06:00 Carbon Dioxide 24 mmol/L (21-32) 09/28/18 06:00 Anion Gap 7 MMOL/L (8-16) L 09/28/18 06:00 BUN 17 mg/dL (7-18) 09/28/18 06:00 Creatinine 1.0 mg/dL (0.55-1.3) 09/28/18 06:00 Creat Clearance w eGFR > 60 (>60) 09/28/18 06:00 Random Glucose 86 mg/dL (74-106) 09/28/18 06:00 Calcium 7.6 mg/dL (8.5-10.1) L 09/28/18 06:00 Total Bilirubin 0.6 mg/dL (0.2-1) 09/28/18 06:00 AST 30 U/L (15-37) 09/28/18 06:00 ALT 38 U/L (13-61) 09/28/18 06:00 Alkaline Phosphatase 89 U/L (45-117) 09/28/18 06:00 Total Protein 5.8 g/dl (6.4-8.2) L 09/28/18 06:00 Albumin 2.9 g/dl (3.4-5.0) L 09/28/18 06:00 CARDIAC ENZYMES Creatine Kinase 179 IU/L (26-308) 09/27/18 21:10 Troponin I < 0.02 ng/ml (0.00-0.05) 09/27/18 21:10 Current Medications Generic Name Dose Route Start Last Admin Trade Name Freq PRN Reason Stop Dose Admin Aspirin 81 mg 09/28/18 10:00 Asa - PO DAILY COLE Atorvastatin Calcium 80 mg 09/27/18 22:00 09/27/18 23:06 Lipitor - PO 80 mg HS COLE Administration Heparin Sodium (Porcine) 1,000 unit 09/27/18 15:16 Heparin - IVPUSH PRN PRN Heparin Heparin Sodium (Porcine) 5,000 unit 09/27/18 15:16 09/27/18 15:18 Heparin - IVPUSH 5,000 unit PRN PRN Administration Heparin Heparin Sodium/Dextrose 25,000 units in 500 mls @ 20 mls/hr 09/27/18 15:30 03:00 Heparin Infusion - IVPB 700 units/hr TITR COLE 14 mls/hr Administration Protocol 1,000 UNITS/HR Metoprolol Succinate 25 mg 09/27/18 19:30 09/27/18 23:06 Toprol Xl - PO 25 mg DAILY [facility] Administration Home Medications Medication Instructions Recorded Amlodipine Besylate [Norvasc -] 5 mg PO DAILY 06/15/18 Aspirin 81 mg PO DAILY 06/15/18 Atorvastatin Ca [Lipitor] 40 mg PO HS 06/15/18 Metoprolol Succinate [Toprol Xl] 25 mg PO DAILY 06/15/18 ASSESSMENT AND PLAN: Pt is a 48 yo M with pmh of HTN, HLD, CAD s/p stent following [place] (January 2018) and open heart surgery for "Likely PFO surgery" presenting with malaise, cough and worsening SOB found to be in Aflutter. #Aflutter with rate of 110 on Toprol 25mg , as per cardio to increase the dose to 50mg , patient will be transferred to [facility] in am. for ablation #STEMI, V1 KELLY in setting of aflutter; On heparin drip continue, continue aspirin #CORDELIA on Iv NS 1L bolus stat, Urine lytes, UA, continue #HTN:continue Lopressor #HLD:Lipitor 80mg HS DVT px: on heparin drip as per will tx he patient to [facility] for ablation to better control the heart rate.
[2018-09-28] MEDS ORDERED: ASPIRIN 81 MG CHEWABLE TABLETS PO SCH (10:00)
[2018-09-28] MEDS: metoPROLOL SUCCINATE 25 MG TAB.SR.24H (FP) PO SCH (10:16)
[2018-09-28 11:57] LABS: ACANTHOCYTES 0; ANISOCYTOSIS 0; HELMET CELLS 0; HOWELL-JOLLY BODIES 0; MACROCYTOSIS 0; OVALOCYTE 0; ROULEAU 0; SICKELED CELLS 0; TARGET CELLS 0; TEAR DROP CELLS 0; TOXIC GRANULATION 0
[2018-09-28 12:06] LABS: PLATELET ESTIMATE ADEQUATE
[2018-09-28 12:40] LABS: URINE APPEARANCE CLEAR; URINE BILIRUBIN NEGATIVE (<2.0 mg/dL); URINE COLOR YELLOW; URINE GLUCOSE (UA) NEGATIVE (NEGATIVE); URINE KETONE NEGATIVE (NEGATIVE); URINE LEUK ESTERASE TRACE (NEGATIVE); URINE NITRITE NEGATIVE (NEGATIVE); URINE PROTEIN NEGATIVE (NEGATIVE); URINE UROBILINOGEN NEGATIVE mg/dL (0.2-1.0)
[2018-09-28 12:44] LABS: EPI CELLS RARE /HPF (FEW); URINE HYALINE CAST 1 /lpf; URINE MUCUS RARE
--- NOTE | 2018-09-28 13:22 | PN ---
Physical Exam: SUBJECTIVE: Patient seen and examined at bedside. No acute events overnight. Chest pain much improved. Denies sob, singh/d, f/c, n/v, abd pain, urinary/bowel symptoms. Pt feels much better today but still complaining of cough with phlegm. OBJECTIVE: Vital Signs Temperature 98 F 09/28/18 09:00 Pulse Rate 98 H 09/28/18 09:00 Respiratory Rate 18 09/28/18 09:00 Blood Pressure 124/68 09/28/18 09:00 O2 Sat by Pulse Oximetry (%) 100 09/28/18 09:00 GENERAL: Awake, alert, and fully oriented, in no acute distress. HEENT: EVAN. Dry mucus membranes. on NC 2L. EOMI. NECK: Normal ROM. Suppled, no LAD/JVD. LUNGS: Mild bibasilar crackles noted. HEART: RRR. Normal S1, S2. No murmurs noted. ABDOMEN: Soft, nontender, not distended, normoactive bowel sounds, no guarding MUSCULOSKELETAL: Normal range of motion at all joints. No bony deformities or tenderness. No CVA tenderness. LOWER EXTREMITIES: 2+ pulses, warm, well-perfused. No calf tenderness. No peripheral edema. NEUROLOGICAL: Cranial nerves II-XII intact. Normal speech. gait not observed. Normal strength and tone globally, no facial/ tongue asymmetry PSYCHIATRIC: Cooperative. Good eye contact. Appropriate mood and affect.d CBCD WBC 3.7 K/mm3 (4.0-10.0) L 09/28/18 05:30 RBC 4.97 M/mm3 (4.00-5.60) 09/28/18 05:30 Hgb 14.1 GM/dL (11.7-16.9) 09/28/18 05:30 Hct 42.8 % (35.4-49) 09/28/18 05:30 MCV 86.2 fl (80-96) 09/28/18 05:30 MCHC 33.0 g/dl (32.0-35.9) 09/28/18 05:30 RDW 13.8 % (11.9-15.9) 09/28/18 05:30 Plt Count 152 K/MM3 (134-434) 09/28/18 05:30 MPV 9.7 fl (7.5-11.1) 09/28/18 05:30 CMP Sodium 137 mmol/L (136-145) 09/28/18 06:00 Potassium 4.1 mmol/L (3.5-5.1) 09/28/18 06:00 Chloride 105 mmol/L (98-107) 09/28/18 06:00 Carbon Dioxide 24 mmol/L (21-32) 09/28/18 06:00 Anion Gap 7 MMOL/L (8-16) L 09/28/18 06:00 BUN 17 mg/dL (7-18) 09/28/18 06:00 Creatinine 1.0 mg/dL (0.55-1.3) 09/28/18 06:00 Creat Clearance w eGFR > 60 (>60) 09/28/18 06:00 Calcium 7.6 mg/dL (8.5-10.1) L 09/28/18 06:00 Total Bilirubin 0.6 mg/dL (0.2-1) 09/28/18 06:00 AST 30 U/L (15-37) 09/28/18 06:00 ALT 38 U/L (13-61) 09/28/18 06:00 Alkaline Phosphatase 89 U/L (45-117) 09/28/18 06:00 Total Protein 5.8 g/dl (6.4-8.2) L 09/28/18 06:00 Albumin 2.9 g/dl (3.4-5.0) L 09/28/18 06:00 Active Medications Aspirin (Asa -) 81 mg PO DAILY COLE Last Admin: 09/28/18 10:17 Dose: 81 mg Atorvastatin Calcium (Lipitor -) 80 mg PO HS [facility] Last Admin: 09/27/18 23:06 Dose: 80 mg Heparin Sodium (Porcine) (Heparin -) 1,000 unit IVPUSH PRN PRN PRN Reason: Heparin Heparin Sodium (Porcine) (Heparin -) 5,000 unit IVPUSH PRN PRN PRN Reason: Heparin Last Admin: 09/27/18 15:18 Dose: 5,000 unit Heparin Sodium/Dextrose (Heparin Infusion -) 25,000 units in 500 mls @ 20 mls/ hr IVPB TITR COLE; Protocol Last Admin: 09/28/18 10:17 Dose: 700 units/hr, 14 mls/hr Metoprolol Succinate (Toprol Xl -) 25 mg PO DAILY [facility] Last Admin: 09/28/18 10:16 Dose: 25 mg CONSULTS: Cardio- Dr. Mcgill IMAGING: * CXR (09/27/18): There is no change in adverse nature. ASSESSMENT/PLAN: Pt is a 48 yo M with pmh of HTN, HLD, CAD s/p stent following [place] (January 2018) and open heart surgery for "Likely PFO surgery" presenting with malaise, cough and worsening SOB found to be in Aflutter. #A. flutter; in setting of dehydration from viral illness, and medication non- compliance -CAD s/p stent following [place] (January 2018); no hx of arrhythmias in the past -repeat EKG unchanged from admission -trops neg x2 Cont home meds: -Metoprolol 25 mg PO QD for rate control #R/O STEMI; Chest pain resolved. -Heparin drip for AC -Repeat EKG unchanged from EKG on admission. -Trops negative x2 -F/u cardio recs -f/u echo Cont home med: -Aspirin 81 mg PO QD -Atorvastatin 80 mg PO HS -Metoprolol 25 mg PO QD #CORDELIA; likely prerenal 2/2 dehydration. Initial BUN/Cr 25/1.5, today 17/1.0. Resolved. -cont to monitor BMP -U/A neg; Shashi 60, Urine K pending, U Cl 55 #HTN; this AM 124/68. Improving. -Hold home med Amlodipine Cont home meds: -Toprol XL 25 mg PO QD for rate control #HLD Cont home med: -Lipitor 80mg HS #FEN -Off IVfs -Monitor lytes replete as needed -Sodium controlled diet #DVT -Currently on heparin drip Dispo -cont to monitor inpt tele Visit type - Emergency Visit Emergency Visit: Yes ED Registration Date: 09/27/18 Care time: The patient presented to the Emergency Department on the above date and was hospitalized for further evaluation of their emergent condition. - New Patient This patient is new to me today: Yes Date on this admission: 09/28/18 - Critical Care Critical Care patient: No
--- NOTE | 2018-09-28 15:29 | ECHO ---
Name: LEEANN SIFUENTES Exam:Adult Echocardiogram Study Date: 09/28/2018 09:32 AM Age: 48 yrs Reason For Study: ua Height: 69 in Weight: 190 lb BSA: 2.0 m2 MMode/2D Measurements & Calculations IVSd: 1.5 cm Ao root diam: 3.6 cm LVIDd: 4.2 cm LA dimension: 3.4 cm LVIDs: 2.9 cm ACS: 2.6 cm LVPWd: 0.92 cm IVSs: 1.8 cm LVPWs: 1.1 cm EDV(Teich): 77.8 ml ESV(Teich): 31.4 ml Doppler Measurements & Calculations MV E max luis: 89.3 cm/sec Ao V2 max: 87.6 cm/sec MV A max luis: 37.0 cm/sec Ao max P.1 mmHg MV E/A: 2.4 Ao V2 mean: 66.8 cm/sec Ao mean P.0 mmHg Ao V2 VTI: 15.8 cm MR max luis: 367.0 cm/sec TR max luis: 173.3 cm/sec MR max P.9 mmHg TR max P.1 mmHg PI end-d luis: 111.3 cm/sec Procedure A complete two-dimensional transthoracic echocardiogram was performed (2D, M-mode, Doppler and color flow Doppler). Left Ventricle There is moderate asymmetric left ventricular hypertrophy of the septum. The left ventricular ejectio n fraction is normal. Ejection Fraction = 55-60%. The left ventricular wall motion is normal. Right Ventricle The right ventricle is normal in size and function. Atria Normal left and right atrial size and function. Mitral Valve There is no mitral regurgitation noted. Tricuspid Valve There is trace tricuspid regurgitation. There was insufficient TR detected to calculate RV systolic p ressure. Aortic Valve No hemodynamically significant valvular aortic stenosis. No aortic regurgitation is present. Pulmonic Valve There is no pulmonic valvular regurgitation. Great Vessels The aortic root is normal size. Pericardium/Pleura There is no pericardial effusion. Interpretation Summary The left ventricular ejection fraction is normal. There is moderate asymmetric left ventricular hypertrophy of the septum. The right ventricle is normal in size and function. There is trace tricuspid regurgitation. MD Bebo Marroquin 09/28/2018 03:28 PM
--- NOTE | 2018-09-28 15:41 | CON.CARD ---
Consult Consult Specialty:: Cardiology Referred by:: raúl English Reason for Consultation:: Aflutter - History of Present Illness Chief Complaint: SOB, palpitations History of Present Illness: 48 yeart old male with a pmhx of congenital heart disease (reports surgery at age 14 ?VSD), HOCM with septal thickness on CMR 10/2017 of 17mm, +FREDDY with mild LVPT gradient at rest in past, h/o cardioembolic STEMI 02/20/17 s/p aspiration thrombectomy of OM3 and LPDA c/b LPDA perforation s/p NEIL, s/p atypical aflutter FERNANDA/DCCV on 04/29/17 now presenting with sob and palpitations. Patient has been feeling ill last few days. URI and GI symptoms. +weakness and heart racing associated with SOB. Not on AC Notged to be in aflutter with RVR - History Source History Provided By: Patient, Medical Record - Past Medical History Cardio/Vascular: Yes: AFIB, Other (HOCM) - Alcohol/Substance Use Hx Alcohol Use: No - Smoking History Smoking history: Current every day smoker Have you smoked in the past 12 months: No Aproximately how many cigarettes per day: 1 Home Medications - Allergies Allergies/Adverse Reactions: Allergies Allergy/AdvReac Type Severity Reaction Status Date / Time No Known Allergies Allergy Verified 06/14/18 16:30 - Home Medications Home Medications: Ambulatory Orders Amlodipine Besylate [Norvasc -] 5 mg PO DAILY 06/15/18 Aspirin 81 mg PO DAILY 06/15/18 Atorvastatin Ca [Lipitor] 40 mg PO HS 06/15/18 Metoprolol Succinate [Toprol Xl] 25 mg PO DAILY 06/15/18 Vital Signs: Vital Signs Temperature 98 F 09/28/18 14:00 Pulse Rate 90 09/28/18 14:00 Respiratory Rate 20 09/28/18 14:00 Blood Pressure 130/81 09/28/18 14:00 O2 Sat by Pulse Oximetry (%) 100 09/28/18 09:00 Constitutional: Yes: No Distress Neck: Yes: Supple Respiratory: Yes: CTA Bilaterally Gastrointestinal: Yes: Soft Cardiovascular: Yes: Pulse Irregular JVD: No Carotid Bruit: No Heart Sounds: Yes: S1, S2 Murmur: Yes: Systolic Murmur (2/6 HSM) Edema: No - Other Data Labs, Other Data: CBC, BMP 09/28/18 05:30 09/28/18 06:00 INR, PTT INR 1.08 (0.83-1.09) 09/28/18 08:30 Troponin, BNP 09/27/18 09/27/18 14:55 21:10 Troponin I < 0.02 < 0.02 B-Natriuretic Peptide 168.6 H Troponin, BNP 09/27/18 09/27/18 14:55 21:10 Troponin I < 0.02 < 0.02 B-Natriuretic Peptide 168.6 H Imaging - Results Chest X-ray: Report Reviewed EKG: Image Reviewed Assessment/Plan 48 yeart old male with a pmhx of congenital heart disease (reports surgery at age 14 ?VSD), HOCM with septal thickness on CMR 10/2017 of 17mm, +FREDDY with mild LVPT gradient at rest in past, h/o cardioembolic STEMI 02/20/17 s/p aspiration thrombectomy of OM3 and LPDA c/b LPDA perforation s/p NEIL, s/p atypical aflutter FERNANDA/DCCV on 04/29/17 now presenting with sob and palpitations. Patient has been feeling ill last few days. URI and GI symptoms. +weakness and heart racing associated with SOB. Not on AC Notged to be in aflutter with RVR 1) Aflutter in setting of HOCM -Ensure hydration. -Increase metoprolol xl to 50mg Stop amlodipine (outpt medicine) -Would change heparin drip to apixaban 5mg bid -Plan to transfer to [facility] for possible EPS ablation. If not than DCCV. Keep NPO after midnight 2) H/o stent Aspirin
--- NOTE | 2018-09-28 16:13 | EKG ---
Test Reason : Blood Pressure : / mmHG Vent. Rate : 090 BPM Atrial Rate : 256 BPM P-R Int : 000 ms QRS Dur : 126 ms QT Int : 380 ms P-R-T Axes : 269 259 -64 degrees QTc Int : 464 ms ATRIAL FLUTTER WITH VARIABLE A-V BLOCK RIGHT BUNDLE BRANCH BLOCK INFERIOR INFARCT (CITED ON OR BEFORE 14-JUN-2018) ABNORMAL ECG WHEN COMPARED WITH ECG OF 28-SEP-2018 08:40, T WAVE INVERSION NO LONGER EVIDENT IN ANTERIOR LEADS QT HAS SHORTENED Confirmed by ENEIDA DONALD, GABY ([id number]) on 09/28/2018 4:13:14 PM Referred By: ARNOLD Confirmed By:GABY MONIQUE MD
--- NOTE | 2018-09-28 16:17 | EKG ---
Test Reason : Blood Pressure : / mmHG Vent. Rate : 109 BPM Atrial Rate : 256 BPM P-R Int : 000 ms QRS Dur : 124 ms QT Int : 456 ms P-R-T Axes : -84 261 -63 degrees QTc Int : 614 ms ATRIAL FLUTTER WITH VARIABLE A-V BLOCK RIGHT BUNDLE BRANCH BLOCK INFERIOR INFARCT (CITED ON OR BEFORE 14-JUN-2018) ANTERIOR INFARCT (CITED ON OR BEFORE 14-JUN-2018) ABNORMAL ECG WHEN COMPARED WITH ECG OF 27-SEP-2018 15:14, ST NO LONGER DEPRESSED IN INFERIOR LEADS T WAVE INVERSION NOW EVIDENT IN INFERIOR LEADS T WAVE INVERSION NOW EVIDENT IN ANTERIOR LEADS Confirmed by ENEIDA DONALD, GABY ([id number]) on 09/28/2018 4:16:47 PM Referred By: Confirmed By:GABY MONIQUE MD
--- NOTE | 2018-09-28 16:20 | EKG ---
Test Reason : Blood Pressure : / mmHG Vent. Rate : 117 BPM Atrial Rate : 264 BPM P-R Int : 000 ms QRS Dur : 092 ms QT Int : 302 ms P-R-T Axes : 256 234 015 degrees QTc Int : 421 ms ATRIAL FLUTTER WITH VARIABLE A-V BLOCK RIGHT SUPERIOR AXIS DEVIATION INCOMPLETE RIGHT BUNDLE BRANCH BLOCK INFERIOR INFARCT (CITED ON OR BEFORE 14-JUN-2018) POSSIBLE ANTERIOR INFARCT (CITED ON OR BEFORE 14-JUN-2018) ABNORMAL ECG WHEN COMPARED WITH ECG OF 27-SEP-2018 14:49, ST NOW DEPRESSED IN INFERIOR LEADS NONSPECIFIC T WAVE ABNORMALITY HAS REPLACED INVERTED T WAVES IN INFERIOR LEADS Confirmed by ENEIDA DONALD, GABY ([id number]) on 09/28/2018 4:20:00 PM Referred By: Confirmed By:GABY MONIQUE MD
[2018-09-28] MEDS ORDERED: HEPARIN NA (PORCINE) 5,000 UNITS/ML 1ML VIAL IVPUSH PRN ×2 (16:54)
[2018-09-28] MEDS ORDERED: HEPARIN INFUSION - 25,000 UNITS/500 ML INFUS.BAG IVPB SCH (17:00)
[2018-09-28] MEDS ORDERED: APIXABAN 5 MG TABLET PO SCH (19:00)
[2018-09-28] MEDS ORDERED: SODIUM CHLORIDE 1,000 ML IV SCH (19:15)
[2018-09-28] MEDS: ATORVASTATIN CA 80 MG TABLET (FP) PO SCH (21:05)
[2018-09-28 22:55] VITALS: BP 125/68; PULSE 84; TEMP 98.2
--- NOTE | 2018-09-29 06:43 | DS ---
Physical Exam: SUBJECTIVE: No acute events. OBJECTIVE: Vital Signs Period Temp Pulse Resp BP Sys/Brooks Pulse Ox Last 24 Hr 98 F-98.2 F 84-98 18-20 124-130/68-81 96-100 PHYSICAL EXAM GENERAL: Awake, alert, and fully oriented, in no acute distress. HEENT: EVAN. Dry mucus membranes. on NC 2L. EOMI. NECK: Normal ROM. Suppled, no LAD/JVD. LUNGS: Mild bibasilar crackles noted. HEART: RRR. Normal S1, S2. No murmurs noted. ABDOMEN: Soft, nontender, not distended, normoactive bowel sounds, no guarding MUSCULOSKELETAL: Normal range of motion at all joints. No bony deformities or tenderness. No CVA tenderness. LOWER EXTREMITIES: 2+ pulses, warm, well-perfused. No calf tenderness. No peripheral edema. NEUROLOGICAL: Cranial nerves II-XII intact. Normal speech. gait not observed. Normal strength and tone globally, no facial/ tongue asymmetry PSYCHIATRIC: Cooperative. Good eye contact. Appropriate mood and affected LABS Laboratory Results - last 24 hr 09/28/18 09/28/18 09/28/18 05:30 05:30 05:30 WBC 3.7 L RBC 4.97 Hgb 14.1 Hct 42.8 MCV 86.2 MCH 28.4 MCHC 33.0 RDW 13.8 Plt Count 152 MPV 9.7 Absolute Neuts (auto) 1.1 L Neutrophils % 30.7 L Neutrophils % (Manual) 36.7 L Band Neutrophils % 1.0 Lymphocytes % 52.9 H Lymphocytes % (Manual) 48.0 H Monocytes % 13.9 H Monocytes % (Manual) 8 Eosinophils % 1.9 D Eosinophils % (Manual) 1.0 Basophils % 0.6 Basophils % (Manual) 0.0 Myelocytes % (Man) 0 Promyelocytes % (Man) 0 Blast Cells % (Manual) 0 Nucleated RBC % 0 Metamyelocytes 0 Hypochromia 0 Toxic Granulation 0 Dohle Bodies 0 Platelet Estimate Adequate Polychromasia 0 Poikilocytosis 0 Basophilic Stippling 0 Anisocytosis 0 Microcytosis 0 Macrocytosis 0 Spherocytes 0 Sickle Cells 0 Target Cells 0 Tear Drop Cells 0 Ovalocytes 0 Stomatocytes 0 Helmet Cells 0 Grey-Kenel Bodies 0 [place] Rings 0 [place]ietta Cells 0 Acanthocytes (Spur) 0 Rouleaux 0 Fragmented RBCs 0 Schistocytes 0 PT with INR INR PTT (Actin FS) Sodium Potassium Chloride Carbon Dioxide Anion Gap BUN Creatinine Creat Clearance w eGFR Random Glucose Hemoglobin A1c % 6.4 H Calcium Phosphorus Magnesium Total Bilirubin AST ALT Alkaline Phosphatase Total Protein Albumin Triglycerides Cholesterol Total LDL Cholesterol HDL Cholesterol TSH Cancelled Urine Color Urine Appearance Urine pH Ur Specific [place] Urine Protein Urine Glucose (UA) Urine Ketones Urine Blood Urine Nitrite Urine Bilirubin Urine Urobilinogen Ur Leukocyte Esterase Urine WBC (Auto) Urine RBC (Auto) Ur Epithelial Cells Hyaline Casts Urine Mucus Ur Random Sodium Ur Random Potassium Ur Random Chloride 09/28/18 09/28/18 09/28/18 06:00 08:30 12:00 WBC RBC Hgb Hct MCV MCH MCHC RDW Plt Count MPV Absolute Neuts (auto) Neutrophils % Neutrophils % (Manual) Band Neutrophils % Lymphocytes % Lymphocytes % (Manual) Monocytes % Monocytes % (Manual) Eosinophils % Eosinophils % (Manual) Basophils % Basophils % (Manual) Myelocytes % (Man) Promyelocytes % (Man) Blast Cells % (Manual) Nucleated RBC % Metamyelocytes Hypochromia Toxic Granulation Dohle Bodies Platelet Estimate Polychromasia Poikilocytosis Basophilic Stippling Anisocytosis Microcytosis Macrocytosis Spherocytes Sickle Cells Target Cells Tear Drop Cells Ovalocytes Stomatocytes Helmet Cells Grey-Kenel Bodies [place] Rings Antonietta Cells Acanthocytes (Spur) Rouleaux Fragmented RBCs Schistocytes PT with INR 12.70 INR 1.08 PTT (Actin FS) 69.2 H Sodium 137 Potassium 4.1 Chloride 105 Carbon Dioxide 24 Anion Gap 7 L BUN 17 Creatinine 1.0 Creat Clearance w eGFR > 60 Random Glucose 86 Hemoglobin A1c % Calcium 7.6 L Phosphorus 3.4 Magnesium 2.0 Total Bilirubin 0.6 AST 30 ALT 38 Alkaline Phosphatase 89 Total Protein 5.8 L Albumin 2.9 L Triglycerides 97 Cholesterol 101 Total LDL Cholesterol 62 HDL Cholesterol 23 L TSH 0.90 Urine Color Urine Appearance Urine pH Ur Specific [place] Urine Protein Urine Glucose (UA) Urine Ketones Urine Blood Urine Nitrite Urine Bilirubin Urine Urobilinogen Ur Leukocyte Esterase Urine WBC (Auto) Urine RBC (Auto) Ur Epithelial Cells Hyaline Casts Urine Mucus Ur Random Sodium 60 Ur Random Potassium 23.6 Ur Random Chloride 55 L 09/28/18 12:00 WBC RBC Hgb Hct MCV MCH MCHC RDW Plt Count MPV Absolute Neuts (auto) Neutrophils % Neutrophils % (Manual) Band Neutrophils % Lymphocytes % Lymphocytes % (Manual) Monocytes % Monocytes % (Manual) Eosinophils % Eosinophils % (Manual) Basophils % Basophils % (Manual) Myelocytes % (Man) Promyelocytes % (Man) Blast Cells % (Manual) Nucleated RBC % Metamyelocytes Hypochromia Toxic Granulation Dohle Bodies Platelet Estimate Polychromasia Poikilocytosis Basophilic Stippling Anisocytosis Microcytosis Macrocytosis Spherocytes Sickle Cells Target Cells Tear Drop Cells Ovalocytes Stomatocytes Helmet Cells Grey-Kenel Bodies [place] Rings Antonietta Cells Acanthocytes (Spur) Rouleaux Fragmented RBCs Schistocytes PT with INR INR PTT (Actin FS) Sodium Potassium Chloride Carbon Dioxide Anion Gap BUN Creatinine Creat Clearance w eGFR Random Glucose Hemoglobin A1c % Calcium Phosphorus Magnesium Total Bilirubin AST ALT Alkaline Phosphatase Total Protein Albumin Triglycerides Cholesterol Total LDL Cholesterol HDL Cholesterol TSH Urine Color Yellow Urine Appearance Clear Urine pH 5.0 Ur Specific [place] 1.015 Urine Protein Negative Urine Glucose (UA) Negative Urine Ketones Negative Urine Blood Negative Urine Nitrite Negative Urine Bilirubin Negative Urine Urobilinogen Negative Ur Leukocyte Esterase Trace Urine WBC (Auto) 21 Urine RBC (Auto) 1 Ur Epithelial Cells Rare Hyaline Casts 1 Urine Mucus Rare Ur Random Sodium Ur Random Potassium Ur Random Chloride HOSPITAL COURSE: Date of Admission:09/27/18 IMAGING: * CXR (09/27/18): There is no change in adverse nature. 48M with pmh of HTN, HLD, CAD, h/o cardioembolic STEMI 02/20/17 s/p aspiration thrombectomy of OM3 and LPDA c/b LPDA perforation s/p NEIL presented with malaise , cough and worsening SOB, and chest pain found to be in atrial flutter with RVR in setting of HOCM. EKG showed KELLY in V1 in setting of atrial flutter. He was assessed by cardio and subsequently started on aspirin, statin, heparin drip and Metoprolol 50 (increased from home dose of 25 mg). Throughout duration of hospital stay, pt's chest pain improved. He was subsequently transferred to [facility] initiated by cardiology for possible EPS ablation. Continuation of medical care in [facility]. Date of Discharge: 09/29/18 Minutes to complete discharge: 40 Discharge Summary Reason For Visit: ATRIAL FLUTTER Condition: Guarded - Instructions Disposition: TRANSFER ACUTE CARE/OTHER HOSP - Home Medications Comprehensive Discharge Medication List: Ambulatory Orders Amlodipine Besylate [Norvasc -] 5 mg PO DAILY 06/15/18 Aspirin 81 mg PO DAILY 06/15/18 Atorvastatin Ca [Lipitor] 40 mg PO HS 06/15/18 Metoprolol Succinate [Toprol Xl] 25 mg PO DAILY 06/15/18 This patient is new to me today: Yes Date on this admission: 09/29/18 Emergency Visit: Yes ED Registration Date: 09/27/18 Care time: The patient presented to the Emergency Department on the above date and was hospitalized for further evaluation of their emergent condition. Critical Care patient: No - Discharge Referral Referred to [id number] No
== END 2018-09-28 22:50 | disposition short-term general hospital (02) | DRG 281 ==
LOC: JER 14:40 → JERBED 16:22 → J4W 19:50
PROVIDERS: ADMIT Internal Medicine; ATTEND Internal Medicine
DX: I48.92 Unspecified atrial flutter (principal); I21.29 ST elevation (STEMI) myocardial infarction involving other sites; I42.1 Obstructive hypertrophic cardiomyopathy; N17.9 Acute kidney failure, unspecified; I25.10 Atherosclerotic heart disease of native coronary artery without angina pectoris; I10 Essential (primary) hypertension; I25.2 Old myocardial infarction; I44.1 Atrioventricular block, second degree; F17.210 Nicotine dependence, cigarettes, uncomplicated; Q24.9 Congenital malformation of heart, unspecified; Z95.5 Presence of coronary angioplasty implant and graft
CPT/HCPCS: 36415; 71045-TC-FY; 80048; 80053; 80061; 81003; 81015; 82436; 82550; 82553; 83036; 83721; 83735; 83880; 84100; 84133; 84300; 84443; 84484; 85025; 85610; 85730; 93005; 93010; 93306-TC; 99284-25; J1644; J7030

== ENCOUNTER 2019-11-18 06:59 | Inpatient (IN) | payer OTHER ==
[2019-11-18] MEDS ORDERED: SODIUM CHLORIDE 1,000 ML IV STA (07:13)
[2019-11-18] MEDS ORDERED: ADENOSINE 6 MG/2 ML VIAL IVPUSH ONE ×2 (07:16)
[2019-11-18 07:21] VITALS: BMI 31.0
[2019-11-18] MEDS ORDERED: dilTIAZem HCL 125 MG/25 ML - 25 ML VIAL ONE ×2 (07:23→07:56)
[2019-11-18] MEDS ORDERED: dilTIAZem HCL 30 MG TABLET (FP) PO ONE (07:45)
--- NOTE | 2019-11-18 07:45 | PDOC ---
History of Present Illness - General Chief Complaint: Palpitations Stated Complaint: CHEST PAIN Time Seen by Provider: 11/18/19 07:23 History Source: Patient, Sibling Exam Limitations: No Limitations - History of Present Illness Initial Comments: 11/18/19 07:39 PCP: Denies HPI: 49 yo M pmh HTN, HLD, prior stent after SD, distant open heart surgery for ?PFO, aflutter vs afib s/p ablation presenting with palpitations and shortness of breath since 4 AM. Patient reports baseline chest tightness / pain with 2x weekly exacerbations of his tachyarrhythmia with palpitations / SOB. 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 Last took Metoprolol Tuesday, Xarelto noncompliant due to cost. Denies LE swelling or pain, recent immobilization, recent illness, fevers, chills, hemoptysis, sick contacts. ECHO 09/2018 with 55-60% EF, normal wall motion, moderate LVH. All: NKDA Meds: Non-compliant with Xarelto, Intermittently with Metoprolol PMH: SD s/p stents PSH: Sternotomy for ?PFO SHx: ETOH 1-2 times per week, denies smoking or illicits Past History - Past Medical History Allergies/Adverse Reactions: Allergies Allergy/AdvReac Type Severity Reaction Status Date / Time No Known Allergies Allergy Verified 11/18/19 07:21 Home Medications: Ambulatory Orders Aspirin 81 mg PO DAILY 06/15/18 Atorvastatin Ca [Lipitor] 40 mg PO HS 06/15/18 Metoprolol Succinate [Toprol Xl] 25 mg PO DAILY 06/15/18 Rivaroxaban [Xarelto -] 20 mg PO DAILY 11/18/19 Anemia: No Asthma: No Cancer: No Cardiac Disorders: Yes (OPEN HEART W/ STENT) CVA: No COPD: No CHF: No Dementia: No Diabetes: No GI Disorders: No Disorders: No HTN: Yes Hypercholesterolemia: Yes Liver Disease: No Seizures: No Thyroid Disease: No - Surgical History Abdominal Surgery: No Appendectomy: No Cardiac Surgery: Yes (Cardiac Surgery) Cholecystectomy: No Lung Surgery: No Neurologic Surgery: No Orthopedic Surgery: No - Immunization History Immunization Up to Date: No - Psycho Social/Smoking Cessation Hx Smoking Status: No Smoking History: Unknown if ever smoked Have you smoked in the past 12 months: No Number of Cigarettes Smoked Daily: 1 Cigars Per Day: 1 Hx Alcohol Use: No Drug/Substance Use Hx: No Substance Use Type: None Hx Substance Use Treatment: No Review of Systems - Review of Systems Able to Perform ROS?: Yes Is the patient limited Kazakh proficient: Yes Constitutional: No: Chills, Fever HEENTM: No: Nose Congestion, Throat Pain Respiratory: Yes: Shortness of Breath, SOB at Rest. No: Cough, Productive cough , Hemoptysis Cardiac (ROS): Yes: Chest Pain, Irregular Heart Rate, Lightheadedness, Palpitations, Chest Tightness. No: Edema, Syncope ABD/GI: No: Constipated, Diarrhea, Nausea, Vomiting : No: Burning, Dysuria, Frequency Musculoskeletal: No: Muscle Pain, Muscle Weakness, Neck Pain Integumentary: No: Pruritus, Rash Neurological: No: Headache, Numbness, Tingling, Weakness Psychiatric: No: Stressors, Change in Appetite *Physical Exam - Vital Signs Last Vital Signs Temp Pulse Resp BP Pulse Ox 217 H 22 H 93/76 11/18/19 07:07 11/18/19 07:07 11/18/19 07:07 - Physical Exam 11/18/19 08:29 Vitals reviewed, AF, Tachycardia to 200s, SBP 90s, Tachypnic to mid-20s GEN: Appears stated age, Moderate distress, comfortable. AAOx3. HEENT: NCAT. No facial asymmetry. Moist mucous membranes. Normal voice. Trachea midline. CV: No palpable peripheral pulse - carotid palpable, patient responsive, tachycardic, no murmurs / rubs / gallops appreciated. LUNG: CTAB, tachypnic. No wheezes, rales, rhonchi. No cough. Speaking full sentences. GI: Soft, NTND, +BS, no guarding, no rebound. No masses. Neg CVAT b/l. EXTREMITIES: No LE edema. No obvious deformities of all extremities. SKIN: Warm, dry, no rashes appreciated, non-jaundiced. PSYCH: Anxious. Cooperative and appropriate. NEURO: CN grossly intact. Moving all extremities well. Normal strength and sensation grossly. Heart Score/ECG Review - History History: Moderately suspicious - Electrocardiogram EKG: Normal - Age Age: 45-65 - Risk Factors Based on the list above the patient has:: >/=3 risk factors or Hx atherosclerotic disease - Troponin Troponin: </= normal limit - Score Heart Score - Total: 4 ED Treatment Course - LABORATORY CBC & Chemistry Diagram: 11/18/19 07:30 11/18/19 07:30 - Medications Given in the ED: ED Medications Discontinued Medications Generic Name Dose Route Start Last Admin Trade Name Poloq PRN Reason Stop Dose Admin Adenosine 6 mg 11/18/19 07:16 11/18/19 07:05 Adenocard - IVPUSH 11/18/19 07:17 6 mg ONCE ONE Administration Medical Decision Making - Medical Decision Making 11/18/19 08:13 49 yo M pmh HTN, HLD, prior stent after SD, distant open heart surgery for ?PFO , aflutter vs afib s/p ablation at [facility] 09/2018 presenting with palpitations and shortness of breath since 4 AM. Notable for medication noncompliance, weekly or 2x weekly episodes, denies stimulants. Exam notable for tachycardiac, hypotension, tachypnea. DDX: Afib with RVR, SVT, Aflutter, r/o ACS. HEART Score 4. - Placed on monitor, rhythm strip, labs drawn and sent - Initially HR > 200 with questionable irregularity, SOB, radial pulses not palpable - Adenosine 6 administered without change - SBP 90s, avoiding shock in setting of no AC, >48hrs - Cardizem 10 given, HR resolution to 100s - HR relevation, additional cardizem 10 given, with 30 PO - EKG without ST elevations, prior concerning morphology in aVR resolved with rate control 11/18/19 08:23 - Troponin negative - CXR: enlarged heart, retrocardiac opacity - Patient without fever, acute respiratory symptoms following rate control Dispo: Tele Admit Sign-out given to Dr. Post Admitted under Dr. King 11/18/19 09:10 - Spoke with Dr. Beaver, [facility] will see the patient 11/18/19 09:35 - Breakthrough HR increase to 208, addition cardizem 10 given - Drip ordered, starting rate 5/hr Discharge - Discharge Information Problems reviewed: Yes Clinical Impression/Diagnosis: Palpitations, Atrial fibrillation with rapid ventricular response Condition: Guarded - Admission Yes - Follow up/Referral - Patient Discharge Instructions - Post Discharge Activity
[2019-11-18] MEDS ORDERED: dilTIAZem HCL 50 MG/10 ML - 10 ML VIAL IVPUSH ONE ×2 (07:49→09:34)
[2019-11-18] MEDS ORDERED: dilTIAZem HCL 30 MG TABLET (FP) ONE (07:52)
--- NOTE | 2019-11-18 07:55 | PDOC ---
Attending Attestation - Resident Resident Name: Walker Kerr - ED Attending Attestation I have performed the following: I have examined & evaluated the patient, The case was reviewed & discussed with the resident, I agree w/resident's findings & plan, Exceptions are as noted - HPI HPI: 11/18/19 08:07 49y M hx of CAD, aflutter sp ablation presents with sudden onset of palptiations /lightheaddness/sob/chest pressure starting around 4am, upon arrival the patient was noted tachycardic to 200s with bp approx 90s/60s-appeared to be SVT versus A. fib/flutter., Upon arrival the patient's history of afib was unclear as he was unable to give us a clear cardiac history, he was given 6 mg of adenosine x2 upon arrival without significant improvement of the heart rate and fluids for hypotension. After discussion with the sister who was able to provide history that the patient had A. fib and had an ablation the patient was given diltiazem 10 with improvement of his heart rate from 200s to approximately 106, with improvement of his blood pressure from 90s over 60s to 114/80 and improvement of his symptoms. The patient was also placed on a defibrillator for possible cardioversion. patient states that he has been noncompliant with his medication including his Xarelto as it was too expensive for him. He also states that he is not consistent with taking his other medications including metoprolol and last time he used it was on Tuesday. His original EKGs did reveal signs of subendocardial injury with ST depressions and questionable ST elevation in aVR however that resolved shortly after his rate normalized. The pts HR again increased to the 150s and was given another 10 mg of diltiazem followed by 30 mg of oral diltiazem with stabilization of his heart rate in the 100-110 range. exam: GENERAL: The patient is awake, alert, and fully oriented, Nontoxic - in no acute distress. HEAD: Normocephalic, atraumatic. EYES: extraocular movements intact, sclera anicteric, conjunctiva clear. ENT: Normal voice, Moist mucous membranes. NECK: Normal range of motion, supple LUNGS: Breath sounds equal, clear to auscultation bilaterally. No wheezes, no rhonchi, no rales. HEART: Irregularly irregular, no murmurs appreciated ABDOMEN: Soft, nontender, No guarding, no rebound. No CVA tenderness EXTREMITIES: Normal range of motion, no edema. No calf tenderness, negative Homans sign NEUROLOGICAL: No facial assymetry, Normal speech, moving all 4 extremity spontaneously and symmetrically PSYCH: Normal mood, normal affect. SKIN: Warm, Dry, normal turgor, Impression and plan: A flutter with rapid response, symptomatic with chest pain and hypotension - upon arrival pt was placed on radiation monitor Patient's heart rate improved with diltiazem Patient is on a radiation monitor will continue close monitoring Anticipate admission for further management - Physicial Exam PE: 11/18/19 09:01 see above - Critical Care Time Total Critical Care Time: 45 Critical Care Statement: The care of this patient involved high complexity decision making to prevent further life threatening deterioration of the patient 's condition and/or to evaluate & treat vital organ system(s) failure or risk of failure. - Medical Decision Making 11/18/19 08:43 pts labs reviewed trop neg will admit for further mngmeent 11/18/19 09:01 Patient remains stable heart rate of 106, currently asymptomatic without any chest pain. 11/18/19 09:35 Patient had another episode of a flutter 3rd episode), responded to 10 mg of diltiazem. As the patient has required multiple boluses of diltiazem will start diltiazem drip for rate control. Case was discussed with cardiology they will see Mr Jimenez. Heart Score/ECG Review - ECG Impressions Comment:: 11/18/19 07:15 Twelve-lead EKG was performed and reviewed by me. Heart rate of 197 Regular rate, marked ST depressions in the anterior lateral and inferior leads 11/18/19 07:27 Twelve-lead EKG was performed and reviewed by me. Heart rate of 106 sinus rythym vs aflutter approx 1mm elevation in AVR, STD in lateral leads 11/18/19 07:48 Heart rate of 105 afluter 2:1 block resolutin of KELLY in AVR nd SD in lateral leads previous changes suspected to be rate related No changes on righ sided EKG
[2019-11-18 08:19] LABS: ALBUMIN 3.6 g/dl (3.4-5.0); BILIRUBIN,TOTAL 0.2 mg/dL (0.2-1); BLOOD UREA NITROGEN 11.6 mg/dL (7-18); CREATININE 1.3 mg/dL (0.55-1.3); MAGNESIUM 1.8 mg/dL (1.8-2.4); POTASSIUM 3.6 mmol/L (3.5-5.1); TOT PROT 7.1 g/dl (6.4-8.2)
[2019-11-18 08:24] LABS: BASO % 0.7 % (0-2.0); HEMATOCRIT 48.3 % (35.4-49); HEMOGLOBIN 17.1 GM/dL (11.7-16.9); LYMPH % 47.5 % (8-40); MCH 30.5 pg (25.7-33.7); MCHC 35.4 g/dl (32.0-35.9); MEAN CELL VOLUME 86.1 fl (80-96); MEAN PLT VOLUME 10.3 fl (7.5-11.1); MONO % 7.8 % (3.8-10.2); PLATELET COUNT 210 K/MM3 (134-434); RBC 5.61 M/mm3 (4.00-5.60); RDW 14.2 % (11.9-15.9); WHITE BLOOD COUNT 7.4 K/mm3 (4.0-10.0)
[2019-11-18 08:38] LABS: INR 0.99 (0.83-1.09); PROTHROMBIN TIME (PATIENT) 11.7 SEC (9.7-13.0)
[2019-11-18 08:41] LABS: ACTIVATED PTT 43.2 SECONDS (25.2-36.5)
[2019-11-18] MEDS ORDERED: ASPIRIN 81 MG CHEWABLE TABLETS ONE (09:37)
[2019-11-18] MEDS: ASPIRIN 81 MG CHEWABLE TABLETS PO SCH (09:38)
[2019-11-18] MEDS ORDERED: DILTIAZEM INJECTION 125 MG in SODIUM CHLORIDE 100 ML IVPB SCH (09:45)
[2019-11-18 09:49] LABS: URINE APPEARANCE CLEAR; URINE BILIRUBIN NEGATIVE (NEGATIVE); URINE COLOR YELLOW; URINE GLUCOSE (UA) NEGATIVE (NEGATIVE); URINE KETONE NEGATIVE (NEGATIVE); URINE LEUK ESTERASE NEGATIVE (NEGATIVE); URINE NITRITE NEGATIVE (NEGATIVE); URINE PROTEIN NEGATIVE (NEGATIVE); URINE UROBILINOGEN 0.2 mg/dL (0.2-1.0)
[2019-11-18] MEDS: RIVAROXABAN 20 MG TABLET PO SCH (09:59)
--- NOTE | 2019-11-18 10:08 | HP ---
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 Patient has history of Aflutter with RVR where he was seen last year and was sent to [facility] for ablation. Since then, he was placed on Metoprolol XL 50mg and Xarelto 20mg daily. 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 In the last month, patient has had trouble with prescriptions/insurance, so he was unable to take his medications regularly. He last took his Xarelto 2 weeks ago and toprol 5 days ago. This morning, patient experienced palpitations and chest tightness, worse than we had been experiencing in the past, so he came to the ED. Patient denies any recent illness, denies fevers, chills, headache, dizziness, shortness of breath, abdominal pain, diarrhea, urinary symptoms. ER course was notable for: (1)IV Cardizem 10mg x3, Cardizem 30mg PO (2) (3) Recent Travel: denies PAST MEDICAL HISTORY: HTN HLD CAD h/o cardioembolic STEMI 02/20/17 s/p aspiration thrombectomy of OM3 LPDA c/b LPDA perforation s/p NEIL Aflutter (s/p ablation) PAST SURGICAL HISTORY: Social History: Smoking:denies Alcohol:denies Drugs: denies Allergies No Known Allergies Allergy (Verified 11/18/19 07:21) HOME MEDICATIONS: Home Medications Medication Instructions Recorded Aspirin 81 mg PO DAILY 06/15/18 Atorvastatin Ca [Lipitor] 40 mg PO HS 06/15/18 Metoprolol Succinate [Toprol Xl] 25 mg PO DAILY 06/15/18 Rivaroxaban [Xarelto -] 20 mg PO DAILY 11/18/19 REVIEW OF SYSTEMS CONSTITUTIONAL: Absent: fever, chills, diaphoresis, generalized weakness, malaise, loss of appetite, weight change HEENT: Absent: rhinorrhea, nasal congestion, throat pain, throat swelling, difficulty swallowing, mouth swelling, ear pain, eye pain, visual changes CARDIOVASCULAR: palpitations Absent:syncope,irregular heart rate, lightheadedness, peripheral edema RESPIRATORY: Absent: cough, shortness of breath, dyspnea with exertion, orthopnea, wheezing, stridor, hemoptysis GASTROINTESTINAL: Absent: abdominal pain, abdominal distension, nausea, vomiting, diarrhea, constipation, melena, hematochezia GENITOURINARY: Absent: dysuria, frequency, urgency, hesitancy, hematuria, flank pain, genital pain MUSCULOSKELETAL: Absent: myalgia, arthralgia, joint swelling, back pain, neck pain SKIN: Absent: rash, itching, pallor HEMATOLOGIC/IMMUNOLOGIC: Absent: easy bleeding, easy bruising, lymphadenopathy, frequent infections ENDOCRINE: Absent: unexplained weight gain, unexplained weight loss, heat intolerance, cold intolerance NEUROLOGIC: Absent: headache, focal weakness or paresthesias, dizziness, unsteady gait, seizure, mental status changes, bladder or bowel incontinence PSYCHIATRIC: Absent: anxiety, depression, suicidal or homicidal ideation, hallucinations. PHYSICAL EXAMINATION Vital Signs - 24 hr 11/18/19 11/18/19 11/18/19 07:05 07:07 07:20 Pulse Rate 217 H Pulse Rate [ 207 H 106 H Apical] Respiratory 30 H 22 H 28 H Rate Blood Pressure 93/76 Blood Pressure 97/53 L 117/69 [Left Arm] O2 Sat by Pulse 94 L 95 95 Oximetry (%) 11/18/19 11/18/19 11/18/19 07:40 07:55 07:58 Pulse Rate Pulse Rate [ 107 H 202 H 201 H Apical] Respiratory 25 H 35 H Rate Blood Pressure Blood Pressure 106/74 80/55 L 72/60 L [Left Arm] O2 Sat by Pulse 97 97 95 Oximetry (%) 11/18/19 11/18/19 11/18/19 07:59 08:06 09:22 Pulse Rate Pulse Rate [ 102 H 109 H 108 H Apical] Respiratory 22 H 28 H 20 Rate Blood Pressure Blood Pressure 118/70 115/79 136/72 [Left Arm] O2 Sat by Pulse 97 95 95 Oximetry (%) 11/18/19 11/18/19 11/18/19 09:24 09:33 09:37 Pulse Rate Pulse Rate [ 197 H 111 H Apical] Respiratory 26 H Rate Blood Pressure Blood Pressure 126/75 [Left Arm] O2 Sat by Pulse 95 95 Oximetry (%) 11/18/19 11/18/19 09:58 10:00 Pulse Rate 111 H Pulse Rate [ 103 H Apical] Respiratory 20 Rate Blood Pressure 126/75 Blood Pressure 123/89 [Left Arm] O2 Sat by Pulse 97 Oximetry (%) GENERAL: Awake, alert, and fully oriented, in no acute distress. HEAD: Normal with no signs of trauma. EYES: PERRLA, EOMI, sclera anicteric, conjunctiva clear. EARS, NOSE, THROAT: Moist mucous membranes. NECK: Normal range of motion, supple. LUNGS: Breath sounds equal, clear to auscultation bilaterally. HEART: Tachycardic, irregular, normal S1 and S2 without murmur, rub or gallop. ABDOMEN: Soft, nontender, not distended, normoactive bowel sounds. MUSCULOSKELETAL: Normal range of motion at all joints. LOWER EXTREMITIES: 2+ pulses, warm, well-perfused. No peripheral edema. NEUROLOGICAL: Cranial nerves II-XII intact. Normal speech. Normal gait. PSYCHIATRIC: Cooperative. Good eye contact. Appropriate mood and affect. SKIN: Warm, dry, normal turgor. Laboratory Results - last 24 hr 11/18/19 11/18/19 11/18/19 07:30 07:30 07:30 WBC 7.4 RBC 5.61 H Hgb 17.1 H Hct 48.3 MCV 86.1 MCH 30.5 MCHC 35.4 RDW 14.2 Plt Count 210 D MPV 10.3 Absolute Neuts (auto) 2.8 Neutrophils % 38.0 L D Lymphocytes % 47.5 H Monocytes % 7.8 Eosinophils % 6.0 H D Basophils % 0.7 Nucleated RBC % 0 PT with INR 11.70 INR 0.99 PTT (Actin FS) 43.2 H Sodium 142 Potassium 3.6 Chloride 107 Carbon Dioxide 26 Anion Gap 8 BUN 11.6 Creatinine 1.3 Est GFR (CKD-EPI)AfAm 73.74 Est GFR (CKD-EPI)NonAf 63.62 Random Glucose 127 H Calcium 9.0 Magnesium 1.8 Total Bilirubin 0.2 AST 30 ALT 53 Alkaline Phosphatase 127 H Creatine Kinase 186 Creatine Kinase Index 2.0 CK-MB (CK-2) 3.8 H Troponin I 0.02 Total Protein 7.1 Albumin 3.6 Urine Color Urine Appearance Urine pH Ur Specific Berry Urine Protein Urine Glucose (UA) Urine Ketones Urine Blood Urine Nitrite Urine Bilirubin Urine Urobilinogen Ur Leukocyte Esterase 11/18/19 09:41 WBC RBC Hgb Hct MCV MCH MCHC RDW Plt Count MPV Absolute Neuts (auto) Neutrophils % Lymphocytes % Monocytes % Eosinophils % Basophils % Nucleated RBC % PT with INR INR PTT (Actin FS) Sodium Potassium Chloride Carbon Dioxide Anion Gap BUN Creatinine Est GFR (CKD-EPI)AfAm Est GFR (CKD-EPI)NonAf Random Glucose Calcium Magnesium Total Bilirubin AST ALT Alkaline Phosphatase Creatine Kinase Creatine Kinase Index CK-MB (CK-2) Troponin I Total Protein Albumin Urine Color Yellow Urine Appearance Clear Urine pH 6.0 Ur Specific Berry 1.009 L Urine Protein Negative Urine Glucose (UA) Negative Urine Ketones Negative Urine Blood Negative Urine Nitrite Negative Urine Bilirubin Negative Urine Urobilinogen 0.2 Ur Leukocyte Esterase Negative ASSESSMENT/PLAN: Patient is a 49 year old male with past medical history of HTN, HLD, CAD, h/o cardioembolic STEMI 02/20/17 s/p aspiration thrombectomy of OM3 and LPDA c/b LPDA perforation s/p NEIL, Aflutter (s/p ablation), presented today due to heart racing and worsening chest tightness. #Atrial Flutter with RVR -Heart rate controlled s/p IV and PO cardizem at the ED -Will resume Lopressor 25mg bid -IV Lopressor prn -Continue Xarelto 20mg daily -Tele monitoring -Cardiology (Dr. Beaver) consulted. #Troponemia -likely demand ischemia -Trop 0.09, will trend trop -No ST-T wave changes on EKG #HTN -BP stable, continue Metoprolol #HLD -Continue Lipitor 40mg PO HS #Hx of CAD -Continue ASA, Lipitor #FEN -Not on any standing fluids -Electrolytes wnl, routine bmp monitoring -Sodium restricted diet #Prophylaxis -Xarelto 20mg daily #Disposition -full code -admit to tele Visit type - Emergency Visit Emergency Visit: Yes ED Registration Date: 11/18/19 Care time: The patient presented to the Emergency Department on the above date and was hospitalized for further evaluation of their emergent condition. - New Patient This patient is new to me today: Yes Date on this admission: 11/18/19 - Critical Care Critical Care patient: No ATTENDING PHYSICIAN STATEMENT I saw and evaluated the patient. I reviewed the resident's note and discussed the case with the resident. I agree with the resident's findings and plan as documented. SUBJECTIVE: OBJECTIVE: ASSESSMENT AND PLAN:
[2019-11-18] MEDS ORDERED: METOPROLOL TARTRATE 25 MG TABLET (FP) ONE ×2 (10:43→15:32)
[2019-11-18] MEDS ORDERED: METOPROLOL TARTRATE 25 MG TABLET (FP) PO SCH (10:45)
--- NOTE | 2019-11-18 11:17 | CON.CARD ---
Consult Consult Specialty:: Cardiology Reason for Consultation:: palpitations - History of Present Illness History of Present Illness: 49-year-old man, with a history of hypertension, hypertrophic cardiomyopathy ( MRI 2017: septum 17mm, septal LGE), Cardioembolic Inferior wall IA 02/20/2017, status post aspiration thrombectomy of OM 3 and L PDA, complicated by L PDA perforation requiring stenting, atrial flutter sp ablation 09/2018. Poorly compliant with medications. Ran out of AC months ago. Stopped Metoprolol 1 week ago and was druinking excessive ETOH. Admitted with palpitations that started at 4AM and associated with dizziness, SOB and chest pressure. ECG initially with rapid atypical Aflutter HR 200bpm. Was given CCB and BB and HR now 100s. Feeling better. - Past Medical History Cardio/Vascular: Yes: AFIB, Other (HOCM) - Alcohol/Substance Use Hx Alcohol Use: No - Smoking History Smoking history: Unknown if ever smoked Have you smoked in the past 12 months: No Aproximately how many cigarettes per day: 1 Home Medications - Allergies Allergies/Adverse Reactions: Allergies Allergy/AdvReac Type Severity Reaction Status Date / Time No Known Allergies Allergy Verified 11/18/19 07:21 - Home Medications Home Medications: Ambulatory Orders Aspirin 81 mg PO DAILY 06/15/18 Atorvastatin Ca [Lipitor] 40 mg PO HS 06/15/18 Metoprolol Succinate [Toprol Xl] 25 mg PO DAILY 06/15/18 Rivaroxaban [Xarelto -] 20 mg PO DAILY 11/18/19 Review of Systems - Review of Systems Constitutional: reports: No Symptoms Eyes: reports: No Symptoms HENT: reports: No Symptoms Neck: reports: No Symptoms Cardiovascular: reports: Palpitations, Shortness of Breath Respiratory: reports: No Symptoms Gastrointestinal: reports: No Symptoms Genitourinary: reports: No Symptoms Vital Signs: Vital Signs Temperature Pulse Rate 103 H 11/18/19 10:00 Respiratory Rate 20 11/18/19 10:00 Blood Pressure 123/89 11/18/19 10:00 O2 Sat by Pulse Oximetry (%) 97 11/18/19 10:00 Constitutional: Yes: Well Nourished, No Distress Eyes: Yes: Conjunctiva Clear, EOM Intact HENT: Yes: Atraumatic, Normocephalic Neck: Yes: Supple, Trachea Midline Respiratory: Yes: Regular, CTA Bilaterally Gastrointestinal: Yes: Normal Bowel Sounds Cardiovascular: Yes: Pulse Irregular JVD: No Heart Sounds: Yes: S1, S2 Murmur: No: Systolic Murmur, Diastolic Murmur Edema: No - Other Data Labs, Other Data: CBC, BMP 11/18/19 07:30 11/18/19 07:30 INR, PTT INR 0.99 (0.83-1.09) 11/18/19 07:30 Troponin, BNP 11/18/19 07:30 Troponin I 0.02 Troponin, BNP 11/18/19 07:30 Troponin I 0.[address] T changes. Problem List - Problems (1) Atrial fibrillation with rapid ventricular response Code(s): I48.91 - UNSPECIFIED ATRIAL FIBRILLATION Assessment/Plan 1. hypertrophic cardiomyopathy (MRI 2016: septum 17mm, septal LGE), 2. Cardioembolic Inferior wall IA 02/20/2017, status post aspiration thrombectomy of OM 3 and L PDA, complicated by L PDA perforation requiring stenting, 3. Afib sp DCCV and atrial flutter sp ablation 09/2018. 4. Poorly compliant with medications Admitted with recurrent rapid and highly symptomatic Aflutter in setting of poor compliance and ETOH use. Advised transfer to [facility] for DCCV and consideration for repeat ablation given very rapid SVT in setting of HCM. Pt declined. * Monitor cardiac enzymes * Admit to telemetry. * Metoprolol 50mg BID. * Xarelto 20mg HS.
[2019-11-18] MEDS ORDERED: METOPROLOL TARTRATE 5 MG/5 ML VIAL ONE ×2 (15:28→18:49)
[2019-11-18] MEDS ORDERED: METOPROLOL TARTRATE 25 MG TABLET (FP) PO ONE (15:29)
[2019-11-18] MEDS: METOPROLOL TARTRATE 5 MG/5 ML VIAL IVPUSH PRN ×2 (15:31→18:55)
[2019-11-18] MEDS ORDERED: fentaNYL CITRATE 250 MCG/5 ML VIAL IVPUSH ONE (18:14)
[2019-11-18] MEDS: METOPROLOL TARTRATE 50 MG TABLET (FP) PO SCH (21:03)
[2019-11-18] MEDS ORDERED: METOPROLOL TARTRATE 50 MG TABLET (FP) ONE (21:04)
[2019-11-18] MEDS ORDERED: ATORVASTATIN CA 40 MG TABLET (FP) PO SCH (22:00)
[2019-11-18] MEDS ORDERED: ATORVASTATIN CA 40 MG TABLET (FP) ONE (22:54)
[2019-11-19 07:45] LABS: BASO % 0.8 % (0-2.0); EOS % 8.3 % (0-4.5); HEMATOCRIT 46.3 % (35.4-49); HEMOGLOBIN 15.8 GM/dL (11.7-16.9); LYMPH % 51.1 % (8-40); MCH 29.7 pg (25.7-33.7); MCHC 34.1 g/dl (32.0-35.9); MEAN CELL VOLUME 87.2 fl (80-96); MEAN PLT VOLUME 9.7 fl (7.5-11.1); MONO % 8.6 % (3.8-10.2); NEUT % 31.2 % (42.8-82.8); PLATELET COUNT 198 K/MM3 (134-434); RBC 5.31 M/mm3 (4.00-5.60); RDW 14.2 % (11.9-15.9); WHITE BLOOD COUNT 5.6 K/mm3 (4.0-10.0)
[2019-11-19 08:21] LABS: ALBUMIN 3.3 g/dl (3.4-5.0); BILIRUBIN,TOTAL 0.4 mg/dL (0.2-1); BLOOD UREA NITROGEN 13.2 mg/dL (7-18); CREATININE 1.2 mg/dL (0.55-1.3); PHOSPHOROUS 4.3 mg/dL (2.5-4.9); POTASSIUM 4.3 mmol/L (3.5-5.1); TOT PROT 6.8 g/dl (6.4-8.2)
--- NOTE | 2019-11-19 09:36 | EKG ---
Test Reason : Blood Pressure : / mmHG Vent. Rate : 205 BPM Atrial Rate : 208 BPM P-R Int : 000 ms QRS Dur : 082 ms QT Int : 226 ms P-R-T Axes : 000 268 219 degrees QTc Int : 417 ms SUPRAVENTRICULAR TACHYCARDIA MARKED ST ABNORMALITY, POSSIBLE INFERIOR SUBENDOCARDIAL INJURY MARKED ST ABNORMALITY, POSSIBLE ANTEROLATERAL SUBENDOCARDIAL INJURY ABNORMAL ECG WHEN COMPARED WITH ECG OF 28-SEP-2018 14:33, VENT. RATE HAS INCREASED BY 115 BPM RIGHT BUNDLE BRANCH BLOCK IS NO LONGER PRESENT CRITERIA FOR INFERIOR INFARCT ARE NO LONGER PRESENT Confirmed by Nidia Doherty ([id number]) on 11/19/2019 9:35:51 AM Referred By: Confirmed By:Nidia Doherty
[2019-11-19 10:38] VITALS: TEMP 98
[2019-11-19] MEDS ORDERED: ASPIRIN 81 MG CHEWABLE TABLETS ONE ×2 (10:39→11:04)
[2019-11-19] MEDS: RIVAROXABAN 20 MG TABLET PO SCH (11:06)
[2019-11-19] MEDS: METOPROLOL TARTRATE 50 MG TABLET (FP) PO SCH (11:06)
[2019-11-19] MEDS: ASPIRIN 81 MG CHEWABLE TABLETS PO SCH (11:06)
--- NOTE | 2019-11-19 13:30 | DS ---
Physical Exam: SUBJECTIVE: Patient seen and examined OBJECTIVE: Vital Signs Period Temp Pulse Resp BP Sys/Brooks Pulse Ox Last 24 Hr 98 F 59-125 18-22 119-159/59-92 97-100 PHYSICAL EXAM GENERAL: Awake, alert, and fully oriented, in no acute distress. EYES: PERRLA, EOMI, sclera anicteric, conjunctiva clear. EARS, NOSE, THROAT: Moist mucous membranes. LUNGS: Breath sounds equal, clear to auscultation bilaterally. HEART: Tachycardic, irregular, normal S1 and S2 without murmur, rub or gallop. ABDOMEN: Soft, nontender, not distended, normoactive bowel sounds. MUSCULOSKELETAL: Normal range of motion at all joints. LOWER EXTREMITIES: 2+ pulses, warm, well-perfused. No peripheral edema. NEUROLOGICAL: Normal speech. Normal gait. PSYCHIATRIC: Cooperative. Good eye contact. Appropriate mood and affect. LABS Laboratory Results - last 24 hr 11/18/19 11/18/19 11/19/19 20:27 20:40 06:00 WBC 5.6 RBC 5.31 Hgb 15.8 Hct 46.3 MCV 87.2 MCH 29.7 MCHC 34.1 RDW 14.2 Plt Count 198 MPV 9.7 Absolute Neuts (auto) 1.7 Neutrophils % 31.2 L Lymphocytes % 51.1 H Monocytes % 8.6 Eosinophils % 8.3 H Basophils % 0.8 Nucleated RBC % 0 Sodium Potassium Chloride Carbon Dioxide Anion Gap BUN Creatinine Est GFR (CKD-EPI)AfAm Est GFR (CKD-EPI)NonAf Random Glucose Calcium Phosphorus Magnesium Total Bilirubin AST ALT Alkaline Phosphatase Troponin I 0.07 H Total Protein Albumin TSH Blood Type O POSITIVE Antibody Screen Negative 11/19/19 06:00 WBC RBC Hgb Hct MCV MCH MCHC RDW Plt Count MPV Absolute Neuts (auto) Neutrophils % Lymphocytes % Monocytes % Eosinophils % Basophils % Nucleated RBC % Sodium 142 Potassium 4.3 Chloride 110 H Carbon Dioxide 26 Anion Gap 6 L BUN 13.2 Creatinine 1.2 Est GFR (CKD-EPI)AfAm 81.23 Est GFR (CKD-EPI)NonAf 70.09 Random Glucose 118 H Calcium 9.0 Phosphorus 4.3 Magnesium 2.0 Total Bilirubin 0.4 AST 29 ALT 48 Alkaline Phosphatase 116 Troponin I Total Protein 6.8 Albumin 3.3 L TSH 2.72 D Blood Type Antibody Screen Current Medications Aspirin (Asa -) 81 mg PO DAILY [facility] Last Admin: 11/19/19 11:06 Dose: 81 mg Atorvastatin Calcium (Lipitor -) 40 mg PO HS [facility] Last Admin: 11/18/19 23:21 Dose: 40 mg Metoprolol Tartrate (Lopressor Injection -) 5 mg IVPUSH Q4H PRN PRN Reason: TACHYCARDIA Last Admin: 11/18/19 18:55 Dose: 5 mg Metoprolol Tartrate (Lopressor -) 50 mg PO BID [facility] Last Admin: 11/19/19 11:06 Dose: 50 mg Rivaroxaban (Xarelto) 20 mg PO DAILY [facility] Last Admin: 11/19/19 11:06 Dose: 20 mg Home Medications Medication Instructions Recorded Aspirin 81 mg PO DAILY 06/15/18 Atorvastatin Ca [Lipitor] 40 mg PO HS 06/15/18 Metoprolol Tartrate [Lopressor -] 50 mg PO BID #60 tablet 11/19/19 Rivaroxaban [Xarelto -] 20 mg PO DAILY #30 tablet 11/19/19 HOSPITAL COURSE: Date of Admission:11/18/19 49 year old male with past medical history of HTN, HLD, CAD, h/o cardioembolic STEMI 02/20/17 s/p aspiration thrombectomy of OM3 and LPDA c/b LPDA perforation s /p NEIL, Aflutter (s/p ablation), presented today due to heart racing and worsening chest tightness is admitted for A-flutter with RVR. Pt was found to be in SVTs to 200s and was given 6mg adenosine x2 which reveal A-flutter with rvr. He was also hypotensive on arrival which resolved with IVF. Heart rate was then controlled w/ IV and PO cardizem at the ED. Lopressor 25mg bid and Xarelto 20mg daily was continued and Cardiology (Dr. Beaver) consulted. Pt was also found to have troponemia of 0.09 w/ No ST-T wave changes on EKG, therefore likely demand ischemia. Patient states that he has been noncompliant with his medication including his Xarelto as it was too expensive for him. He also states that he is not consistent with taking his other medications including metoprolol and last time he used it was on Tuesday. Patient had 3 episodes of flutter in the ER, responded to 10 mg of diltiazem, so required multiple boluses of diltiazem and was started diltiazem drip for rate control. Once pt was stabilized, cardiology recommended and Advised transfer to [facility] for DCCV and consideration for repeat ablation given very rapid SVT in setting of HCM. Pt declined. 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 Pt was discharged home on metoprolol 50 mg BID and Xarelto 20mg daily. Attempted to set up an appt for pt with Dr. Mcgowan office- would not take medicaid and his airbrush artist technical, Dr. Gonzalez office- unable to reach. Pt reports his [employer] insurance plan is schedule to activate on November 24, advised pt to call and make an appt then. 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 11/18/19 07:15 Twelve-lead EKG was performed and reviewed by me. Heart rate of 197 Regular rate, marked ST depressions in the anterior lateral and inferior leads 11/18/19 07:27 Twelve-lead EKG was performed and reviewed by me. Heart rate of 106 sinus rythym vs aflutter approx 1mm elevation in AVR, STD in lateral leads 11/18/19 07:48 Heart rate of 105 afluter 2:1 block resolutin of KELLY in AVR nd SD in lateral leads previous changes suspected to be rate related No changes on righ sided EKG Date of Discharge: 11/19/19 Minutes to complete discharge: 40 Discharge Summary Problems reviewed: Yes Reason For Visit: PALPITATIONS; A-FIB W/RAPID VENTRICULAR RESPONSE Condition: Improved - Instructions Diet, Activity, Other Instructions: You were admitted to the hospital for chest tightness and palpitations. While you were in the hospital, we evaluated you with lab work, blood work, imaging including x rays of your chest. We found that your symptoms were likely caused by an exacerbation of your Atrial fibrillation from lack of medication. We treated you with medications and your symptoms improved. For optimal improvement of your symptoms and to prevent worsening of your condition, we recommended you to be transferred to [facility] for further investigation; however you declined the offer and preferred to be medically managed at [facility]. We made some changes to your medications, please take the followings medications as prescribed, Please STOP taking Metoprolol 25 mg. You can START taking Metoprolol 50 mg twice a day. Continue taking your Xarelto 20 mg daily at night Please take all you medications as prescribed. Please follow up with your [employer], Sanjya Friend, or the one we have provided for you, Dr. Puente, within [address] Puente's office and set up an appointment by November 24, when your insurance is activated ([employer]). Please follow up with your primary care physician within 1 week. Return to the emergency room, if you experience worsening of your symptoms, chest pain, shortness of breath, palpitations or any worsening of your condition. Referrals: Sanjay Radford- Cardiology [Other] - 1 Week Torres Puente MD [Staff Physician] - 1 Week Reena Magdaleno MD [Staff Physician] - 1 Week Disposition: HOME - Home Medications Comprehensive Discharge Medication List: Ambulatory Orders Aspirin 81 mg PO DAILY 06/15/18 Atorvastatin Ca [Lipitor] 40 mg PO HS 06/15/18 Rivaroxaban [Xarelto -] 20 mg PO DAILY 11/18/19 Metoprolol Tartrate [Lopressor -] 50 mg PO BID #60 tablet 11/19/19 This patient is new to me today: Yes Date on this admission: 11/19/19 Emergency Visit: Yes ED Registration Date: 11/18/19 Care time: The patient presented to the Emergency Department on the above date and was hospitalized for further evaluation of their emergent condition. Critical Care patient: No - Discharge Referral Referred to [facility] Med P.C.: No ATTENDING PHYSICIAN STATEMENT I saw and evaluated the patient. I reviewed the resident's note and discussed the case with the resident. I agree with the resident's findings and plan as documented. SUBJECTIVE: OBJECTIVE: ASSESSMENT AND PLAN:
--- NOTE | 2019-11-19 16:01 | PN ---
Progress Note, Physician History of Present Illness: pt seen and examined today in [facility]. states he is feeling better. states he is planned for discharge home today. no chest pain, sob, or palpitations. - Current Medication List Current Medications: Active Medications Aspirin (Asa -) 81 mg PO DAILY [facility] Last Admin: 11/19/19 11:06 Dose: 81 mg Atorvastatin Calcium (Lipitor -) 40 mg PO HS [facility] Last Admin: 11/18/19 23:21 Dose: 40 mg Metoprolol Tartrate (Lopressor Injection -) 5 mg IVPUSH Q4H PRN PRN Reason: TACHYCARDIA Last Admin: 11/18/19 18:55 Dose: 5 mg Metoprolol Tartrate (Lopressor -) 50 mg PO BID [facility] Last Admin: 11/19/19 11:06 Dose: 50 mg Rivaroxaban (Xarelto) 20 mg PO DAILY [facility] Last Admin: 11/19/19 11:06 Dose: 20 mg - Objective Vital Signs: Vital Signs Temperature 98 F 11/19/19 08:30 Pulse Rate 74 11/19/19 08:30 Respiratory Rate 18 11/19/19 08:30 Blood Pressure 159/84 11/19/19 08:30 O2 Sat by Pulse Oximetry (%) 99 11/19/19 08:30 Constitutional: Yes: No Distress, Calm Eyes: Yes: Conjunctiva Clear, EOM Intact HENT: Yes: Atraumatic, Normocephalic Neck: Yes: Supple, Trachea Midline Cardiovascular: Yes: Regular Rate and Rhythm, Murmur, S1, S2. No: Bradycardia, Tachycardia, Pulse Irregular, Bruit, JVD, Gallop, Rub, S3, S4, Varicosities Respiratory: Yes: Regular, CTA Bilaterally. No: Rales, Rhonchi, Wheezes Gastrointestinal: Yes: Normal Bowel Sounds, Soft. No: Distention, Tenderness Musculoskeletal: Yes: WNL Extremities: Yes: WNL Edema: No Peripheral Pulses WNL: Yes Neurological: Yes: Alert, Oriented Psychiatric: Yes: Alert, Oriented Labs: CBC, BMP 11/19/19 06:00 11/19/19 06:00 INR, PTT INR 0.99 (0.83-1.09) 11/18/19 07:30 - ....Imaging Chest X-ray: Report Reviewed, Image Reviewed EKG: Report Reviewed, Image Reviewed Other: Report Reviewed, Image Reviewed (tele-nsr) Assessment/Plan 49-year-old man, with a history of hypertension, hypertrophic cardiomyopathy ( MRI 2017: septum 17mm, septal LGE), Cardioembolic Inferior wall CO 02/20/2017, status post aspiration thrombectomy of OM 3 and L PDA, complicated by L PDA perforation requiring stenting, atrial flutter sp ablation 09/2018. Poorly compliant with medications. Ran out of AC months ago. Stopped Metoprolol 1 week ago and was druinking excessive ETOH. Admitted with palpitations that started at 4AM and associated with dizziness, SOB and chest pressure. ECG initially with rapid atypical Aflutter HR 200bpm. Was given CCB and BB and HR now 100s. Feeling better. 1. hypertrophic cardiomyopathy (MRI 2017: septum 17mm, septal LGE), 2. Cardioembolic Inferior wall CO 02/20/2017, status post aspiration thrombectomy of OM 3 and L PDA, complicated by L PDA perforation requiring stenting, 3. Afib sp DCCV and atrial flutter sp ablation 09/2018. 4. Poorly compliant with medications Admitted with recurrent rapid and highly symptomatic Aflutter in setting of poor compliance and ETOH use. Advised transfer to [facility] for DCCV and consideration for repeat ablation given very rapid SVT in setting of HCM. Pt declined. -currently NSR -cont metoprolol at current dose -on Xarelto but pt states he cannot get Rx at home as no insurance until 11/24, please d/w SW/pharmacy if short term supply can be provided on discharge -pt acceptable for discharge home -recc close outpatient fup within 1-2 weeks with likely plan for longer term event monitoring as outpatient. will see as needed. please call with any additional questions.
[2019-11-19 18:32] VITALS: BP 144/62; PULSE 77
--- NOTE | 2019-11-19 19:15 | PN ---
Teaching Attending Note Name of Resident: Isaiah Tilley ATTENDING PHYSICIAN STATEMENT I saw and evaluated the patient. I reviewed the resident's note and discussed the case with the resident. I agree with the resident's findings and plan as documented. SUBJECTIVE: OBJECTIVE: Vital Signs Period Temp Pulse Resp BP Sys/Brooks Pulse Ox Last 24 Hr 98 F 59-77 18-20 119-159/59-84 99-100 Laboratory Results - last 24 hr 11/18/19 11/18/19 11/19/19 20:27 20:40 06:00 WBC 5.6 RBC 5.31 Hgb 15.8 Hct 46.3 MCV 87.2 MCH 29.7 MCHC 34.1 RDW 14.2 Plt Count 198 MPV 9.7 Absolute Neuts (auto) 1.7 Neutrophils % 31.2 L Lymphocytes % 51.1 H Monocytes % 8.6 Eosinophils % 8.3 H Basophils % 0.8 Nucleated RBC % 0 Sodium Potassium Chloride Carbon Dioxide Anion Gap BUN Creatinine Est GFR (CKD-EPI)AfAm Est GFR (CKD-EPI)NonAf Random Glucose Calcium Phosphorus Magnesium Total Bilirubin AST ALT Alkaline Phosphatase Troponin I 0.07 H Total Protein Albumin TSH Blood Type O POSITIVE Antibody Screen Negative 11/19/19 06:00 WBC RBC Hgb Hct MCV MCH MCHC RDW Plt Count MPV Absolute Neuts (auto) Neutrophils % Lymphocytes % Monocytes % Eosinophils % Basophils % Nucleated RBC % Sodium 142 Potassium 4.3 Chloride 110 H Carbon Dioxide 26 Anion Gap 6 L BUN 13.2 Creatinine 1.2 Est GFR (CKD-EPI)AfAm 81.23 Est GFR (CKD-EPI)NonAf 70.09 Random Glucose 118 H Calcium 9.0 Phosphorus 4.3 Magnesium 2.0 Total Bilirubin 0.4 AST 29 ALT 48 Alkaline Phosphatase 116 Troponin I Total Protein 6.8 Albumin 3.3 L TSH 2.72 D Blood Type Antibody Screen Current Medications Generic Name Dose Route Start Last Admin Trade Name Freq PRN Reason Stop Dose Admin Aspirin 81 mg 11/18/19 10:00 11/19/19 11:06 Asa - PO 81 mg DAILY COLE Administration Atorvastatin Calcium 40 mg 11/18/19 22:00 11/18/19 23:21 Lipitor - PO 40 mg HS COLE Administration Metoprolol Tartrate 5 mg 11/18/19 10:42 11/18/19 18:55 Lopressor Injection - IVPUSH 5 mg Q4H PRN Administration TACHYCARDIA Metoprolol Tartrate 50 mg 11/18/19 22:00 11/19/19 11:06 Lopressor - PO 50 mg BID COLE Administration Rivaroxaban 20 mg 11/18/19 10:00 11/19/19 11:06 Xarelto PO 20 mg DAILY COLE Administration ASSESSMENT AND PLAN:
--- NOTE | 2019-11-20 14:55 | EKG ---
Test Reason : Blood Pressure : / mmHG Vent. Rate : 096 BPM Atrial Rate : 096 BPM P-R Int : 234 ms QRS Dur : 112 ms QT Int : 374 ms P-R-T Axes : 005 -87 099 degrees QTc Int : 472 ms ATRIAL TACHYCARDIA WITH VARIABLE A-V BLOCK POSSIBLE LEFT ATRIAL ENLARGEMENT LEFT AXIS DEVIATION SEPTAL INFARCT , AGE UNDETERMINED INFERIOR INFARCT , AGE UNDETERMINED ABNORMAL ECG Confirmed by Rajeev Faith MD ([id number]) on 11/20/2019 2:55:29 PM Referred By: Confirmed By:Rajeev Faith MD
== END 2019-11-19 17:00 | disposition home or self-care (01) | DRG 201 ==
LOC: JER 06:59 → JERBED 08:36
PROVIDERS: ADMIT Internal Medicine; ATTEND Internal Medicine
DX: I48.92 Unspecified atrial flutter (principal); I48.91 Unspecified atrial fibrillation; I10 Essential (primary) hypertension; E78.5 Hyperlipidemia, unspecified; I25.2 Old myocardial infarction; I25.10 Atherosclerotic heart disease of native coronary artery without angina pectoris; I42.2 Other hypertrophic cardiomyopathy; I47.1 Supraventricular tachycardia; Z91.14 Patient's other noncompliance with medication regimen; Z95.1 Presence of aortocoronary bypass graft; Z72.89 Other problems related to lifestyle
CPT/HCPCS: 36415; 71045-TC-FY; 80053; 81003; 82550; 82553; 83735; 84100; 84443; 84484; 85025; 85610; 85730; 86850; 86900; 86901; 93005; 93010; 99291; J7030

== ENCOUNTER 2020-06-21 16:59 | Emergency (ER) | payer OTHER ==
[2020-06-21 17:12] VITALS: TEMP 98.5; BMI 31.7
--- NOTE | 2020-06-21 19:18 | PDOC ---
History of Present Illness - General Chief Complaint: Irregular Heart Beat Stated Complaint: HEART PALPITATIONS Time Seen by Provider: 06/21/20 19:05 - History of Present Illness Initial Comments: HPI: 06/21/20 19:15 50 yo M PMH HTN, HLD, CAD w/ cardioembolic STEMI 02/20/17 s/p aspiration thrombectomy of OM3 and left posterior descending artery c/b left posterior descending artery perforation s/p drug eluting stent, Aflutter (s/p ablation), recent admission in Oct 2019 with HR in the 200s and hypotension 2/2 Aflutter w/ RVR, presenting after tachycardia around 1600. States that he was feeling a little lightheaded so he laid down and checked his HR on his watch, found to be 180s-190s. HR returned to 70s after around two minutes. Notes that he has been faithfully taking all his medications as prescribed, including his Xarelto and metoprolol, but has been unable to see Dr. Beaver (x ray technologist he was referred to in Oct 2019) due to difficulty getting appointment with the pandemic. However, has been having about one episode per month of rapid HR in the 130-140s since Oct 2019, self-resolving in <2 minutes without intervention. This is the first time it was in the 180s-190s since last admission, prompting him to come in. Denies ever having CP, SOB, N/V, or diaphoresis, and is now adamant that he would like to go home. Declines any labs or testing. ROS: GENERAL/CONSTITUTIONAL: denies fever, chills, diaphoresis, generalized weakness HEAD, EYES, EARS, NOSE AND THROAT: denies rhinorrhea, nasal congestion, throat pain, throat swelling NEUROLOGIC: denies headache, focal weakness, dizziness, unsteady gait, mental status changes CARDIOVASCULAR: endorses palpitations and lightheadedness, now resolved. Denies chest pain, syncope, peripheral edema RESPIRATORY: denies cough, shortness of breath, dyspnea with exertion, wheezing GASTROINTESTINAL: denies abdominal pain, abdominal distension, nausea, vomiting, diarrhea, constipation, melena, hematochezia GENITOURINARY: denies dysuria, frequency, urgency MUSCULOSKELETAL: denies myalgia, arthralgia SKIN: denies rash, itching HEMATOLOGIC/IMMUNOLOGIC: denies easy bleeding, easy bruising ENDOCRINE: denies unexplained weight gain, unexplained weight loss, heat intolerance, cold intolerance PSYCHIATRIC: denies anxiety, depression, suicidal or homicidal ideation, hallucinations PE: Gen: well-developed, well-nourished, NAD Neuro: AAOX4, CN II-XII intact HEENT: atraumatic, normocephalic Neck: trachea midline, supple CV: regular rate, regular rhythm, no murmurs, rubs, or gallops Pulm: CTA b/l, no wheezing Abd: soft, non-distended, non-tender MSK: full ROM, intact pulses Extr: no edema, no deformities Skin: warm, dry MDM: Concern for SVT v Aflutter w/ RVR, now with normal heart rate. - EKG sinus with PACs at 76 bpm, HI 156, QRS 90, QTc 483, left atrial enlargement, notched QRS in II, III, AVF and V3. T wave inversion in V2. No ST segment changes. Appears similar to most recent EKG on 11/18/19. Patient has expressed understanding that he could develop renewed elevated heart rate, shortness of breath, and potential , and insists that he would like to go home. He does request renewed referral to a x ray technologist, as he does not currently have one he is seeing. He is competent to make this decision. Will sign out AMA with referral to Dr. Beaver for outpatient management. 06/21/20 20:09 Now amenable to stay for troponin check. - CBC, CMP, cardiac profile - CXR - repeat trop in 2 hours - plan to dc with close outpatient management and cardiology referral 06/21/20 21:29 Initial labs wnl (K 5.3 with hemolysis). Trop negative. Will get repeat set at 2215, plan to dc with close follow-up assuming no abnormalities. 06/21/20 23:42 Repeat labs, trop negative. Will dc for further outpatient management. Past History - Medical History Allergies/Adverse Reactions: Allergies Allergy/AdvReac Type Severity Reaction Status Date / Time No Known Allergies Allergy Verified 06/21/20 17:09 Home Medications: Ambulatory Orders Aspirin 81 mg PO DAILY 06/15/18 Atorvastatin Ca [Lipitor] 40 mg PO HS 06/15/18 Metoprolol Tartrate [Lopressor -] 50 mg PO BID #60 tablet 11/19/19 Rivaroxaban [Xarelto -] 20 mg PO DAILY #30 tablet 11/19/19 Anemia: No Asthma: No Cancer: No Cardiac Disorders: Yes (OPEN HEART W/ STENT) CVA: No COPD: No CHF: No Dementia: No Diabetes: No GI Disorders: No Disorders: No HTN: Yes Hypercholesterolemia: Yes Liver Disease: No Seizures: No Thyroid Disease: No - Surgical History Abdominal Surgery: No Appendectomy: No Cardiac Surgery: Yes (Cardiac Surgery) Cholecystectomy: No Lung Surgery: No Neurologic Surgery: No Orthopedic Surgery: No - Immunization History Immunization Up to Date: No - Psycho-Social/Smoking History Smoking Status: No Smoking History: Current every day smoker Have you smoked in the past 12 months: Yes Number of Cigarettes Smoked Daily: 0 Cigars Per Day: 4 Information on smoking cessation initiated: Yes - Substance Abuse Hx (Audit-C & DAST Scrn) How often the patient has a drink containing alcohol: Monthly or less Number of drinks the patient has on a typical day: 1 or 2 How often the patient has six or more drinks on one occasion: Never Score: In Men: 4 or > Positive; In Women: 3 or > Positive: 1 Screen Result (Pos requires Nsg. Audit-10AR): Negative In the last yr the pt used illegal drug/Rx for NonMed reason: No Score: Yes response is considered Positive: 0 Screen Result (Positive result requires Nsg. DAST-10): Negative *Physical Exam - Vital Signs Last Vital Signs Temp Pulse Resp BP Pulse Ox 98.5 F 79 18 124/82 100 06/21/20 17:09 06/21/20 17:09 06/21/20 17:09 06/21/20 17:09 06/21/20 17:09 ED Treatment Course - LABORATORY CBC & Chemistry Diagram: 06/21/20 20:20 06/21/20 22:21 Discharge - Discharge Information Problems reviewed: Yes Clinical Impression/Diagnosis: Palpitations Condition: Stable - Follow up/Referral Referrals: Rajesh Beaver MD [Staff Physician] - - Patient Discharge Instructions Patient Printed Discharge Instructions: DI for Arrhythmias Additional Instructions: You were seen with reported high heart rates. Your labs, EKG, and chest X ray did not show any concerning findings. However, it is essential that you follow up with cardiology. The number is listed in your paperwork, please call to make an appointment. Follow up with your primary care doctor within one week. Return to the ER if you develop new or worsening symptoms. - Post Discharge Activity
[2020-06-21 20:32] LABS: BASO % 1.1 % (0-2.0); EOS % 5.1 % (0-4.5); HEMATOCRIT 45.4 % (35.4-49); HEMOGLOBIN 15.6 GM/dL (11.7-16.9); LYMPH % 38.1 % (8-40); MCH 30.3 pg (25.7-33.7); MCHC 34.3 g/dl (32.0-35.9); MEAN CELL VOLUME 88.3 fl (80-96); MEAN PLT VOLUME 9.6 fl (7.5-11.1); MONO % 8.2 % (3.8-10.2); NEUT % 47.5 % (42.8-82.8); PLATELET COUNT 208 K/MM3 (134-434); RBC 5.13 M/mm3 (4.00-5.60); RDW 13.7 % (11.9-15.9); WHITE BLOOD COUNT 8.5 K/mm3 (4.0-10.0)
--- NOTE | 2020-06-21 20:36 | PDOC ---
Documentation entered by Jacki Engle SCRIBE, acting as scribe for Lang Gibbs MD. Lang Gibbs MD: This documentation has been prepared by the luis angelibeOniel Ana, SCRIBE, under my direction and personally reviewed by me in its entirety. I confirm that the documentation accurately reflects all work, treatment, procedures, and medical decision making performed by me. Attending Attestation - Resident Resident Name: Thom Ferrer - ED Attending Attestation I have performed the following: I have examined & evaluated the patient, The case was reviewed & discussed with the resident, I agree w/resident's findings & plan, Exceptions are as noted - HPI HPI: 06/21/20 19:11 Patient is a 50 year old male with a significant past medical history of hypertension, hyperlipidemia, coronary artery disease who presents to the ED with tachycardia since earlier today. Patient stated he was initially feeling lightheaded so he layed down and then saw that according to his watch his heart rate was "super high" which went down after 2 minutes. Patient stated he has been compliant with all his medications. Patient denies: diaphoresis, nausea, vomiting, SOB, chest pain, or any other related symptoms. Allergies: NKDA - Physicial Exam PE: 06/21/20 20:35 EXAMINATION CONSTITUTIONAL: Well-appearing; well-nourished; in no apparent distress HEAD: Normocephalic; atraumatic EYES: PERRL; EOM intact ENMT: External appears normal; normal oropharynx NECK: Supple; non-tender; no cervical lymphadenopathy CARD: Normal S1, S2; no murmurs, rubs, or gallops RESP: Normal chest excursion with respiration; breath sounds clear and equal bilaterally; no wheezes, rhonchi, or rales ABD: Soft, non-distended; non-tender; no palpable organomegaly, no palpable hernias EXT: Normal ROM in all four extremities; non-tender to palpation; distal pulses intact SKIN: Warm, dry, no rash NEURO: No focal neurological deficiencies. - Medical Decision Making 06/21/20 20:35 Patient is a 50-year-old male with history of paroxysmal A. fib, status post ablation, on metoprolol and Xarelto presents to the ER after a self-limiting episode of palpitations with heart rate reaching to 190 bpm. In the ER, patient is asymptomatic, EKG reveals no evidence of acute ischemia or dysrhythmia. Will obtain CBC/CMP/cardiac troponin x2. If no evidence of AMI, will discharge with outpatient follow-up. Discharge - Discharge Information Problems reviewed: Yes Clinical Impression/Diagnosis: Palpitations Condition: Stable Disposition: HOME - Follow up/Referral Referrals: Rajesh Beaver MD [Staff Physician] - - Patient Discharge Instructions Patient Printed Discharge Instructions: DI for Arrhythmias Additional Instructions: You were seen with reported high heart rates. Your labs, EKG, and chest X ray did not show any concerning findings. However, it is essential that you follow up with cardiology. The number is listed in your paperwork, please call to make an appointment. Follow up with your primary care doctor within one week. Return to the ER if you develop new or worsening symptoms. - Post Discharge Activity
[2020-06-21 21:07] LABS: ALBUMIN 3.3 g/dl (3.4-5.0); ALK PHOS 135 U/L (45-117); ANION GAP 4 MMOL/L (8-16); BILIRUBIN,TOTAL 0.4 mg/dL (0.2-1); BLOOD UREA NITROGEN 16.5 mg/dL (7-18); CALCIUM 8.7 mg/dL (8.5-10.1); CHLORIDE 110 mmol/L (98-107); CO2 26 mmol/L (21-32); CREATININE 1.2 mg/dL (0.55-1.3); GLUCOSE,RANDOM 88 mg/dL (74-106); POTASSIUM 5.3 mmol/L (3.5-5.1); SGOT/AST 46 U/L (15-37); SGPT/ALT 54 U/L (13-61); SODIUM 140 mmol/L (136-145); TOT PROT 6.8 g/dl (6.4-8.2)
[2020-06-21 23:40] LABS: BLOOD UREA NITROGEN 15.2 mg/dL (7-18); CALCIUM 8.8 mg/dL (8.5-10.1); CREATININE 1.1 mg/dL (0.55-1.3); POTASSIUM 4.1 mmol/L (3.5-5.1)
[2020-06-21 23:56] VITALS: BP 128/78; PULSE 68
--- NOTE | 2020-06-22 15:10 | EKG ---
Test Reason : Blood Pressure : / mmHG Vent. Rate : 076 BPM Atrial Rate : 076 BPM P-R Int : 156 ms QRS Dur : 090 ms QT Int : 430 ms P-R-T Axes : 078 -12 092 degrees QTc Int : 483 ms SINUS RHYTHM WITH PREMATURE ATRIAL COMPLEXES LEFT ATRIAL ENLARGEMENT ANTEROSEPTAL INFARCT (CITED ON OR BEFORE 14-JUN-2018) ABNORMAL ECG WHEN COMPARED WITH ECG OF 18-NOV-2019 08:02, SINUS RHYTHM HAS REPLACED ECTOPIC ATRIAL RHYTHM QRS DURATION HAS DECREASED SERIAL CHANGES OF EVOLVING ANTEROSEPTAL INFARCT PRESENT Confirmed by MD Hernandez Daniel ([id number]) on 06/22/2020 3:09:35 PM Referred By: Confirmed By:Ze Hernandez MD
== END 2020-06-21 23:56 | disposition home or self-care (01) ==
LOC: JER 16:59
DX: R00.2 Palpitations (principal)
CPT/HCPCS: 36415; 71045-TC-FY; 80048; 80053; 82550; 82553; 84484; 85025; 93005; 93010; 99285-25

== ENCOUNTER 2021-02-04 21:57 | Emergency (ER) | payer OTHER ==
[2021-02-04 22:16] VITALS: BP 118/75; PULSE 76; TEMP 98.5; BMI 33.2
== END 2021-02-05 00:28 | disposition left against medical advice (07) ==
LOC: JER 21:57
DX: R00.2 Palpitations (principal); I42.2 Other hypertrophic cardiomyopathy
CPT/HCPCS: 71045-TC-FY; 93005; 93010; 99285-25